=== PATIENT | female | born 1935 | race Caucasian/White ===

== ENCOUNTER 2018-04-03 05:54 | Observation (INO) | payer MEDICARE, BC ==
[2018-04-03] MEDS ORDERED: Sodium Chloride 0.9% 10 ML Syringe FLUSH PRN (06:04)
--- NOTE | 2018-04-03 06:20 | EDM.PDOC ---
<Ramon Chandra - Last Filed: 04/03/18 06:25> ED HPI GENERAL MEDICAL PROBLEM - General Chief Complaint: General Stated Complaint: Fall; Leg Weakness Time Seen by Provider: 04/03/18 05:57 Source of Information: Reports: Patient, EMS Notes Reviewed, RN, RN Notes Reviewed History Limitations: Reports: No Limitations - History of Present Illness INITIAL COMMENTS - FREE TEXT/NARRATIVE: Patient is brought to the ED at [facility] via EMS due to patient fall in the bathroom. According to EMS, the patient initially fell yesterday afternoon in the bathroom. Apparently, the patient laid in the bathroom for about any hour before her was able to help her up. The was apparently watching TV before he knew she was on the floor in the bathroom. Patient states she was again up using the bathroom early this AM when she fell again in the bathroom. She states both her legs hurt, but more behind the right knee. Patient denies any head injury or trauma. No LOC. Patient states she remembers the entire incident. Her only complaint is pain behind the right knee. Patient appears to be somewhat of a poor historian. Most of the interview is obtained from EMR crew. Onset: Today Onset Date: 04/03/18 Location: Reports: Lower Extremity, Right Associated Symptoms: Reports: Nausea/Vomiting Treatments CELLOPHANE TESTER: Reports: Other (see below) (None) - Related Data Allergies Allergy/AdvReac Type Severity Reaction Status Date / Time No Known Allergies Allergy Verified 04/03/18 06:44 Home Meds: Home Meds Aspirin [Lo-Dose Aspirin EC] 81 mg PO DAILY 02/17/17 [History] Gabapentin [Neurontin] 300 mg PO TID 02/17/17 [History] Insulin Aspart [Novolog Flexpen] 24 units SQ TIDMEALS 02/17/17 [History] Multivitamin [Multivitamins] 1 tab PO DAILY 02/17/17 [History] Simvastatin [Zocor] 40 mg PO BEDTIME 02/17/17 [History] metFORMIN [Glucophage XR] 500 mg PO BIDMEALS 02/17/17 [History] Insulin Degludec (Tresiba) 33 units SQ QPM 02/18/17 [History] Famotidine 20 mg PO BID 04/03/18 [History] Furosemide 20 mg DAILY 04/03/18 [History] Lisinopril 20 mg DAILY 04/03/18 [History] Past Medical History HEENT History: Reports: Otitis Media, Sinusitis Cardiovascular History: Reports: High Cholesterol, Hypertension Musculoskeletal History: Reports: Back Pain, Chronic, Osteoarthritis, Other ( See Below) Endocrine/Metabolic History: Reports: Diabetes, Type II Dermatologic History: Reports: Venous Stasis Dermatitis - Past Surgical History GI Surgical History: Reports: Appendectomy, Cholecystectomy Female Surgical History: Reports: Hysterectomy Social & Family History - Caffeine Use Caffeine Use: Reports: Coffee Course - Vital Signs Last Recorded V/S: Last Vital Signs Temp 37.4 C 04/03/18 08:48 Pulse 91 04/03/18 08:48 Resp 16 04/03/18 08:48 BP 148/72 H 04/03/18 08:48 Pulse Ox 94 L 04/03/18 08:48 - Orders/Labs/Meds Orders: Active Orders 24 hr Category Date Time Status Insert Urinary Catheter [OM.PC] Q24H Care 04/03/18 08:00 Ordered Urinary Catheter Assessment [RC] ASDIRECTED Care 04/03/18 07:53 Active Sodium Chloride 0.9% [Normal Saline] 1,000 ml Med 04/03/18 07:09 Active IV .BOLUS Sodium Chloride 0.9% [Saline Flush] Med 04/03/18 06:04 Active 10 ml FLUSH ASDIRECTED PRN Peripheral IV Insertion Adult [OM.PC] Routine Oth 04/03/18 06:04 Ordered Medication Orders Enoxaparin Sodium (Lovenox) 40 mg SUBCUT DAILY PRICE Sodium Chloride (Normal Saline) 1,000 mls @ 125 mls/hr IV .BOLUS ONE Stop: 04/03/18 15:08 Last Admin: 04/03/18 07:15 Dose: 125 mls/hr Sodium Chloride (Normal Saline) 1,000 mls @ 125 mls/hr IV ASDIRECTED PRICE Sodium Chloride (Saline Flush) 10 ml FLUSH ASDIRECTED PRN PRN Reason: Keep Vein Open Labs: Laboratory Tests 04/03/18 04/03/18 04/03/18 Range/Units 06:16 06:16 06:16 WBC 5.7 (4.0-10.0) x10^3/uL RBC 4.12 (4.00-5.50) x10^6/uL Hgb 12.4 D (12.0-16.0) g/dL Hct 38.1 (33.0-47.0) % MCV 92.5 (78.0-93.0) fL MCH 30.1 (26.0-32.0) pg MCHC 32.5 (32.0-36.0) g/dL RDW Coeff of Gopal 14.9 (10.0-15.0) % Plt Count 184 (130-400) x10^3/uL Neut % (Auto) 69.0 (50.0-80.0) % Lymph % (Auto) 16.7 L (25.0-50.0) % Harris % (Auto) 13.7 H (2.0-11.0) % Eos % (Auto) 0.4 (0.0-4.0) % Baso % (Auto) 0.2 (0.2-1.2) % PT 10.4 (9.6-11.4) SEC INR 1.0 L (2.0-3.5) D-Dimer, Quantitative 4.06 H (<=0.58) mg/LFEU Sodium 138 (136-145) mmol/L Potassium 4.0 (3.5-5.1) mmol/L Chloride 100 (98-107) mmol/L Carbon Dioxide 27 (21-32) mmol/L Anion Gap 15.0 (10-20) mmol/L BUN 14 (7-18) mg/dL Creatinine 0.9 (0.55-1.02) mg/dL Est Cr Clr Drug Dosing TNP Estimated GFR (MDRD) > 60 Glucose 142 H (74-106) mg/dL Calcium 9.3 (8.5-10.1) mg/dL Corrected Calcium 9.94 (8.5-10.1) mg/dL Total Bilirubin 0.5 (0.2-1.0) mg/dL AST 43 H (15-37) U/L ALT 33 (14-59) U/L Alkaline Phosphatase 64 (46-116) U/L Creatine Kinase (26-192) U/L Troponin I < 0.017 (<=0.056) ng/mL Total Protein 7.5 (6.4-8.2) g/dL Albumin 3.2 L (3.4-5.0) g/dL Globulin 4.3 Albumin/Globulin Ratio 0.74 Urine Color (YELLOW) Urine Appearance (CLEAR) Urine pH (5.0-8.0) Ur Specific Arnold Urine Protein (NEGATIVE) mg/dL Urine Glucose (UA) (NEGATIVE) mg/dL Urine Ketones (NEGATIVE) mg/dL Urine Occult Blood (NEGATIVE) Urine Nitrite (NEGATIVE) Urine Bilirubin (NEGATIVE) Urine Urobilinogen (0.2) EU/dL Ur Leukocyte Esterase (NEGATIVE) Urine RBC (NOT SEEN) /HPF Urine WBC (NOT SEEN) /HPF Ur Squamous Epith Cells (NEGATIVE) /HPF Urine Bacteria (NEGATIVE) /HPF Urine Mucus (NEGATIVE) /LPF 04/03/18 Range/Units 07:30 WBC (4.0-10.0) x10^3/uL RBC (4.00-5.50) x10^6/uL Hgb (12.0-16.0) g/dL Hct (33.0-47.0) % MCV (78.0-93.0) fL MCH (26.0-32.0) pg MCHC (32.0-36.0) g/dL RDW Coeff of Gopal (10.0-15.0) % Plt Count (130-400) x10^3/uL Neut % (Auto) (50.0-80.0) % Lymph % (Auto) (25.0-50.0) % Harris % (Auto) (2.0-11.0) % Eos % (Auto) (0.0-4.0) % Baso % (Auto) (0.2-1.2) % PT (9.6-11.4) SEC INR (2.0-3.5) D-Dimer, Quantitative (<=0.58) mg/LFEU Sodium (136-145) mmol/L Potassium (3.5-5.1) mmol/L Chloride (98-107) mmol/L Carbon Dioxide (21-32) mmol/L Anion Gap (10-20) mmol/L BUN (7-18) mg/dL Creatinine (0.55-1.02) mg/dL Est Cr Clr Drug Dosing Estimated GFR (MDRD) Glucose (74-106) mg/dL Calcium (8.5-10.1) mg/dL Corrected Calcium (8.5-10.1) mg/dL Total Bilirubin (0.2-1.0) mg/dL AST (15-37) U/L ALT (14-59) U/L Alkaline Phosphatase (46-116) U/L Creatine Kinase (26-192) U/L Troponin I (<=0.056) ng/mL Total Protein (6.4-8.2) g/dL Albumin (3.4-5.0) g/dL Globulin Albumin/Globulin Ratio Urine Color Yellow (YELLOW) Urine Appearance Clear (CLEAR) Urine pH 6.0 (5.0-8.0) Ur Specific Arnold 1.020 Urine Protein Negative (NEGATIVE) mg/dL Urine Glucose (UA) Negative (NEGATIVE) mg/dL Urine Ketones 15 H (NEGATIVE) mg/dL Urine Occult Blood Negative (NEGATIVE) Urine Nitrite Negative (NEGATIVE) Urine Bilirubin Negative (NEGATIVE) Urine Urobilinogen 0.2 (0.2) EU/dL Ur Leukocyte Esterase Negative (NEGATIVE) Urine RBC 0-5 (NOT SEEN) /HPF Urine WBC 0-5 (NOT SEEN) /HPF Ur Squamous Epith Cells Few H (NEGATIVE) /HPF Urine Bacteria Not seen (NEGATIVE) /HPF Urine Mucus Not seen (NEGATIVE) /LPF Meds: Medications Generic Name Dose Route Start Last Admin Trade Name Freq PRN Reason Stop Dose Admin Enoxaparin Sodium 40 mg 04/03/18 10:15 Lovenox SUBCUT DAILY PRICE Sodium Chloride 1,000 mls @ 125 mls/hr 04/03/18 07:09 04/03/18 07:15 Normal Saline IV 04/03/18 15:08 125 mls/hr .BOLUS ONE Administration Sodium Chloride 1,000 mls @ 125 mls/hr 04/03/18 10:00 Normal Saline IV ASDIRECTED PRICE Sodium Chloride 10 ml 04/03/18 06:04 Saline Flush FLUSH ASDIRECTED PRN Keep Vein Open Discontinued Medications Generic Name Dose Route Start Last Admin Trade Name Freq PRN Reason Stop Dose Admin Ondansetron HCl 4 mg 04/03/18 06:29 04/03/18 06:36 Zofran IVPUSH 04/03/18 06:30 4 mg ONETIME ONE Administration Departure - Departure Disposition: Refer to Observation Clinical Impression: Rhabdomyolysis - Discharge Information - Problem List Review Problem List Initiated/Reviewed/Updated: Yes - My Orders Last 24 Hours: My Active Orders 04/03/18 07:09 Sodium Chloride 0.9% [Normal Saline] 1,000 ml IV .BOLUS 04/03/18 07:53 Urinary Catheter Assessment [RC] ASDIRECTED 04/03/18 08:00 Insert Urinary Catheter [OM.PC] Q24H - Assessment/Plan Last 24 Hours: My Active Orders 04/03/18 07:09 Sodium Chloride 0.9% [Normal Saline] 1,000 ml IV .BOLUS 04/03/18 07:53 Urinary Catheter Assessment [RC] ASDIRECTED 04/03/18 08:00 Insert Urinary Catheter [OM.PC] Q24H <Sudarshan Lyn W - Last Filed: 04/03/18 10:20> ED ROS GENERAL - Review of Systems Review Of Systems: ROS reveals no pertinent complaints other than HPI. ED EXAM, GENERAL - Physical Exam Exam: See Below General Appearance: Alert, WD/WN, No Apparent Distress Nose: Normal Inspection, Normal Mucosa, No Blood Throat/Mouth: Normal Inspection, Normal Lips, Normal Teeth, Normal Gums, Normal Oropharynx, Normal Voice, No Airway Compromise Head: Atraumatic, Normocephalic Neck: Normal Inspection, Supple, Non-Tender, Full Range of Motion Respiratory/Chest: No Respiratory Distress, Lungs Clear, Normal Breath Sounds, No Accessory Muscle Use, Chest Non-Tender Cardiovascular: Normal Peripheral Pulses, Regular Rate, Rhythm, No Edema, No Gallop, No JVD, No Murmur, No Rub Peripheral Pulses: 3+: Radial (L), Radial (R) GI/Abdominal: Normal Bowel Sounds, Soft, Non-Tender, No Organomegaly, No Distention, No Abnormal Bruit, No Mass (Female) Exam: Deferred Rectal (Female) Exam: Deferred Back Exam: Normal Inspection, Full Range of Motion, NT Extremities: Normal Inspection, No Pedal Edema, Normal Capillary Refill, Joint Swelling, Leg Pain, Limited Range of Motion Neurological: Alert, Oriented, CN II-XII Intact, Normal Cognition, No Motor/ Sensory Deficits, Other (weakness, particularly in lower extremities) Psychiatric: Normal Affect, Normal Mood Course - Radiology Interpretation Free Text/Narrative:: chest x-ray is negative. Radiographs of both knees are negative. Duplex US of both lower extremities is pending. Departure - Departure Time of Disposition: 08:30 - Assessment/Plan Plan: Pt. will be admitted observation. She is a code 1. Continue IV fluids at 125ml hour to clear myoglobin. Will have PT and OT consult on the patient today. She is scheduled for a lower extremity ultrasound.
[2018-04-03] MEDS ORDERED: Ondansetron 4 MG/2 ML SDV IVPUSH ONE (06:29)
[2018-04-03 06:51] LABS: CHLORIDE,CL 100 mmol/L (98-107); SODIUM,NA 138 mmol/L (136-145)
[2018-04-03] MEDS ORDERED: Sodium Chloride 0.9% 1,000 ML IV ONE (07:09)
--- NOTE | 2018-04-03 08:02 | CR ---
[id number] RAD/RAD Knee Right 3V EXAM: RIGHT KNEE 3 VIEWS INDICATION: Fall with pain. COMPARISON: None. DISCUSSION: Osteopenia. Soft tissue swelling along the lateral aspect of the knee. Moderate tricompartmental osteoarthritis. Chondrocalcinosis. No acute fracture, dislocation or other osseous abnormality is identified. Soft tissue calcifications in the anterior medial thigh and along the anterior aspect of the knee. Arterial calcifications. IMPRESSION: 1. Soft tissue swelling. No definite fracture. Nguyễn Vicente MD 04/03/18 0801 Thank you for allowing us to participate in the care of your patient.
--- NOTE | 2018-04-03 08:03 | CR ---
[id number] RAD/RAD Knee Left 3V EXAM: LEFT KNEE 3 VIEWS INDICATION: Knee pain secondary to a fall. COMPARISON: None. DISCUSSION: Mild diffuse soft tissue swelling. Mild medial and patellofemoral compartment osteoarthritis. Soft tissue calcifications are seen in the anterior aspect of the proximal leg. Arterial calcifications. No acute fracture, joint effusion or dislocation. IMPRESSION: 1. Soft tissue swelling. No acute fracture. Nguyễn Vicente MD 04/03/18 0802 Thank you for allowing us to participate in the care of your patient.
--- NOTE | 2018-04-03 08:30 | CR ---
[id number] RAD/RAD Chest PA or AP 1V EXAM: FRONTAL CHEST INDICATION: Fall and weakness. COMPARISON: February 17, 2017. DISCUSSION: Hypoinflation somewhat limits this assessment. Mild bibasilar atelectasis with no definite infiltrates. Borderline heart size without evidence of congestive heart failure. Chronic right fourth rib fracture. IMPRESSION: 1. Low lung volumes. Nguyễn Vicente MD 04/03/18 0829 Thank you for allowing us to participate in the care of your patient.
[2018-04-03] MEDS ORDERED: Sodium Chloride 0.9% 1,000 ML IV SCH (10:00)
[2018-04-03] MEDS: Enoxaparin 40 MG/0.4 ML Syringe SUBCUT SCH (11:22)
--- NOTE | 2018-04-03 12:00 | US ---
[id number] US/US Venous Doppler LE Bilateral EXAM: BILATERAL LOWER EXTREMITY DUPLEX ULTRASOUND INDICATION: BILATERAL LOWER EXTREMITY PAIN AND POSITIVE D-DIMER. COMPARISON: None. DISCUSSION: Partial flow seen in the left distal posterior tibial vein likely representing nonocclusive thrombus. The remaining deep venous structures are compressible bilaterally. No valvular incompetence or pulsatility seen. Spontaneity, phasicity and response to augmentation were noted by the technologist. IMPRESSION: 1. Suspect nonocclusive DVT within the left posterior tibial vein. Findings discussed with ordering provider at time of dictation. Rylan Raphael DO 04/03/18 1158 Thank you for allowing us to participate in the care of your patient.
[2018-04-03] MEDS ORDERED: Enoxaparin 60 MG/0.6 ML Syringe SUBCUT ONE (13:30)
[2018-04-03] MEDS: Gabapentin 300 MG Cap PO SCH ×2 (13:45→20:20)
[2018-04-03] MEDS: Lisinopril 20 MG Tab PO SCH (14:35)
[2018-04-03] MEDS: Aspirin 81 MG Tab.EC PO SCH (14:35)
[2018-04-03] MEDS: Furosemide 20 MG Tab PO SCH (14:35)
[2018-04-03] MEDS: NOVOLOG SQ SCH ×2 (15:23→18:04)
[2018-04-03] MEDS: metFORMIN 500 MG Tab PO SCH (18:03)
[2018-04-03] MEDS: Enoxaparin 100 MG/1 ML Syringe SUBCUT SCH (20:19)
[2018-04-03] MEDS: Simvastatin 40 MG Tab PO SCH (20:20)
[2018-04-03] MEDS: Warfarin 5 MG Tab PO SCH (20:20)
[2018-04-03] MEDS: Famotidine 20 MG Tab PO SCH (20:20)
[2018-04-04] MEDS: metFORMIN 500 MG Tab PO SCH ×2 (08:40→17:57)
[2018-04-04] MEDS: Furosemide 20 MG Tab PO SCH (08:40)
[2018-04-04] MEDS: Multivitamins with Iron/Calcium/Folic Acid/Minerals Tab PO SCH (08:40)
[2018-04-04] MEDS: Aspirin 81 MG Tab.EC PO SCH (08:40)
[2018-04-04] MEDS: Gabapentin 300 MG Cap PO SCH ×3 (08:40→20:44)
[2018-04-04] MEDS: Lisinopril 20 MG Tab PO SCH (08:40)
[2018-04-04] MEDS: Famotidine 20 MG Tab PO SCH ×2 (08:40→20:44)
[2018-04-04] MEDS: Enoxaparin 40 MG/0.4 ML Syringe SUBCUT SCH (08:40)
[2018-04-04] MEDS: Enoxaparin 100 MG/1 ML Syringe SUBCUT SCH ×2 (08:41→20:45)
[2018-04-04] MEDS: NOVOLOG SQ SCH ×3 (08:44→17:58)
[2018-04-04] MEDS: TRESIBA SQ SCH (08:47)
[2018-04-04] MEDS ORDERED: Warfarin 2.5 MG Tab PO ONE (20:00)
[2018-04-04] MEDS: Warfarin 5 MG Tab PO SCH (20:44)
[2018-04-04] MEDS: Simvastatin 40 MG Tab PO SCH (20:44)
[2018-04-05] MEDS: Enoxaparin 40 MG/0.4 ML Syringe SUBCUT SCH (07:40)
[2018-04-05] MEDS: Enoxaparin 100 MG/1 ML Syringe SUBCUT SCH (07:40)
[2018-04-05] MEDS: Famotidine 20 MG Tab PO SCH (07:40)
[2018-04-05] MEDS: metFORMIN 500 MG Tab PO SCH (07:40)
[2018-04-05] MEDS: Multivitamins with Iron/Calcium/Folic Acid/Minerals Tab PO SCH (07:40)
[2018-04-05] MEDS: Furosemide 20 MG Tab PO SCH (07:40)
[2018-04-05] MEDS: Gabapentin 300 MG Cap PO SCH (07:40)
[2018-04-05] MEDS: Aspirin 81 MG Tab.EC PO SCH (07:40)
[2018-04-05] MEDS: Lisinopril 20 MG Tab PO SCH (07:40)
[2018-04-05] MEDS: NOVOLOG SQ SCH (07:42)
--- NOTE | 2018-04-05 09:40 | PCM.DCSUM1 ---
Discharge Summary - Hospital Course Free Text/Narrative:: Pt. is doing well this AM. She did very well with PT this AM. She was seen again by them today, and it is felt that she will be able to be discharged based on her current functional status. She denies any chest pain or shortness of breath. She continues to be subtheraputic in terms of her INR. None of her medications would have decreased the efficacy of the coumadin, so likely this inhibition is due to her diet. She will be counseled on this and kept at 7.5 mg of coumadin daily with lovenox bridge. Home PT and home health are being ordered. She will require some coumadin teaching. She continues to have some difficulty ascending stairs; we will have PT work with her on strengthening and ambulation. We have set up follow-up appointments with her PCP. She will have her INR checked tomorrow and adjusted as necessary. Diagnosis: Stroke: No - Discharge Data Discharge Date: 04/05/18 Discharge Disposition: Home, Self-Care 01 Condition: Good - Discharge Diagnosis/Problem(s) (1) DVT (deep venous thrombosis) SNOMED Code(s): 509826847 ICD Code: I82.409 - ACUTE EMBOLISM AND THOMBOS UNSP DEEP VN UNSP LOWER EXTREMITY Status: Acute Current Visit: Yes Qualifiers: DVT location: lower extremity Affected thrombotic vein of extremity: tibial Chronicity: acute Laterality: left Qualified Code(s): I82.442 - Acute embolism and thrombosis of left tibial vein (2) Rhabdomyolysis SNOMED Code(s): 672344913 ICD Code: M62.82 - RHABDOMYOLYSIS Status: Acute Current Visit: Yes Qualifiers: Rhabdomyolysis type: non-traumatic Qualified Code(s): M62.82 - Rhabdomyolysis - Patient Summary/Data Consults: Consultations 04/03/18 08:53 Consult to Physical Therapy [PT Evaluation and Treatment] [CONS] Routine 04/03/18 08:54 OT Evaluation and Treatment [CONS] Routine 04/05/18 09:14 Consult to Home Health [CONS] Routine - Patient Instructions Diet, Other: coumadin Activity: As Tolerated - Discharge Plan Prescriptions/Med Rec: Enoxaparin [Lovenox] 100 mg SUBCUT BID #14 syringe Warfarin Sodium [Jantoven] 7.5 mg PO DAILY #14 tablet Home Medications: Home Meds Aspirin [Lo-Dose Aspirin EC] 81 mg PO DAILY 02/17/17 [History] Gabapentin [Neurontin] 300 mg PO TID 02/17/17 [History] Insulin Aspart [Novolog Flexpen] 24 units SQ TIDMEALS 02/17/17 [History] Multivitamin [Multivitamins] 1 tab PO DAILY 02/17/17 [History] Simvastatin [Zocor] 40 mg PO BEDTIME 02/17/17 [History] metFORMIN [Glucophage XR] 500 mg PO BIDMEALS 02/17/17 [History] Insulin Degludec (Tresiba) 33 units SQ DAILY 02/18/17 [History] Famotidine 20 mg PO BID 04/03/18 [History] Furosemide 20 mg DAILY 04/03/18 [History] Lisinopril 20 mg DAILY 04/03/18 [History] Sulfamethoxazole/Trimethoprim [Bactrim 400-80 MG] 1 tab PO DAILY 04/03/18 [ History] Enoxaparin [Lovenox] 100 mg SUBCUT BID #14 syringe 04/05/18 [Rx] Warfarin Sodium [Jantoven] 7.5 mg PO DAILY #14 tablet 04/05/18 [Rx] Patient Handouts: Warfarin tablets, What You Need to Know About Warfarin, Prothrombin Time, International Normalized Ratio Test, Vitamin K Foods and Warfarin Forms: ED Department Discharge Referrals: Kirstie Buck, PEN TESTER [Primary Care Provider] - (You have an appt. with the [place] Nurse on April 06, 2018 at 10:00 AM at [facility].) - Discharge Summary/Plan Comment DC Time >30 min.: Yes Discharge Summary/Plan Comment: As above. Pt. was given a week supply of lovenox and a 2 week supply of 7.5mg coumadin, in the likely event that her medication will need adjustment. Continue with other medications. She was encouraged to be up and active around the house. She should return to ER or call 911 if she has any chest pain, shortness of breath, headache, difficulty with speech or ambulation, or numbness /tingling in extremities/face. She should increase her intake of fluids, given in history of recent rhabdomyolysis. - General Info Date of Service: 04/05/18 Admission Dx/Problem (Free Text: DVT Functional Status: Reports: Pain Controlled, Tolerating Diet, Ambulating, Urinating - Review of Systems General: Reports: No Symptoms HEENT: Reports: No Symptoms Pulmonary: Reports: No Symptoms Cardiovascular: Reports: No Symptoms Gastrointestinal: Reports: No Symptoms Genitourinary: Reports: No Symptoms Musculoskeletal: Reports: No Symptoms Skin: Reports: No Symptoms Neurological: Reports: No Symptoms Psychiatric: Reports: No Symptoms - Patient Data Vitals - Most Recent: Last Vital Signs Temp 37.2 C 04/05/18 06:00 Pulse 85 04/05/18 06:00 Resp 18 04/05/18 06:00 BP 120/52 L 04/05/18 07:40 Pulse Ox 94 L 04/05/18 06:00 Weight - Most Recent: 101.151 kg I&O - Last 24 hours: Intake & Output 04/04/18 04/05/18 04/05/18 22:59 06:59 14:59 Intake Total 240 240 240 Output Total 450 Balance 240 -210 240 Lab Results - Last 24 hrs: Laboratory Results - last 24 hr 04/04/18 04/04/18 04/05/18 Range/Units 11:22 16:50 07:00 PT 10.9 (9.6-11.4) SEC INR 1.0 L (2.0-3.5) POC Glucose 185 H 121 H (74-106) mg/dL Med Orders - Current: Current Medications Aspirin (Halfprin) 81 mg PO DAILY [facility] Last Admin: 04/05/18 07:40 Dose: 81 mg Enoxaparin Sodium (Lovenox) 40 mg SUBCUT DAILY [facility] Last Admin: 04/05/18 07:40 Dose: 40 mg Enoxaparin Sodium (Lovenox) 100 mg SUBCUT BID [facility] Last Admin: 04/05/18 07:40 Dose: 100 mg Famotidine (Pepcid) 20 mg PO BID [facility] Last Admin: 04/05/18 07:40 Dose: 20 mg Furosemide (Lasix) 20 mg PO DAILY [facility] Last Admin: 04/05/18 07:40 Dose: 20 mg Gabapentin (Neurontin) 300 mg PO TID [facility] Last Admin: 04/05/18 07:40 Dose: 300 mg Lisinopril (Prinivil) 20 mg PO DAILY [facility] Last Admin: 04/05/18 07:40 Dose: 20 mg Metformin HCl (Glucophage) 500 mg PO BIDMEALS [facility] Last Admin: 04/05/18 07:40 Dose: 500 mg Multivitamins/Minerals (Thera M Plus) 1 tab PO DAILY [facility] Last Admin: 04/05/18 07:40 Dose: 1 tab Novolog Flexpen ( Insulin Aspart 100 Units/Ml) 24 units SQ TIDMEALS [facility] Last Admin: 04/05/18 07:42 Dose: 24 units Tresiba (Insulin Degludec 100 Units/Ml) 33 units SQ DAILY [facility] Last Admin: 04/04/18 08:47 Dose: 33 units Simvastatin (Zocor) 40 mg PO BEDTIME [facility] Last Admin: 04/04/18 20:44 Dose: 40 mg Sodium Chloride (Saline Flush) 10 ml FLUSH ASDIRECTED PRN PRN Reason: Keep Vein Open Warfarin Sodium (Coumadin) 5 mg PO BEDTIME [facility] Last Admin: 04/04/18 20:44 Dose: 5 mg Discontinued Medications Enoxaparin Sodium (Lovenox) 60 mg SUBCUT ONETIME ONE Stop: 04/03/18 13:31 Last Admin: 04/03/18 13:44 Dose: 60 mg Sodium Chloride (Normal Saline) 1,000 mls @ 125 mls/hr IV .BOLUS ONE Stop: 04/03/18 15:08 Last Admin: 04/03/18 07:15 Dose: 125 mls/hr Sodium Chloride (Normal Saline) 1,000 mls @ 125 mls/hr IV ASDIRECTED [facility] Last Admin: 04/03/18 14:35 Dose: 125 mls/hr Ondansetron HCl (Zofran) 4 mg IVPUSH ONETIME ONE Stop: 04/03/18 06:30 Last Admin: 04/03/18 06:36 Dose: 4 mg Warfarin Sodium (Coumadin) 2.5 mg PO ONETIME ONE Stop: 04/04/18 20:01 Last Admin: 04/04/18 20:45 Dose: 2.5 mg - Exam General: Reports: Alert, Oriented Neck: Reports: Supple Lungs: Reports: Clear to Auscultation, Normal Respiratory Effort Cardiovascular: Reports: Regular Rate, Regular Rhythm GI/Abdominal Exam: Normal Bowel Sounds, Soft, Non-Tender, No Organomegaly, No Distention, No Abnormal Bruit, No Mass, Pelvis Stable (Female) Exam: Deferred Rectal (Female) Exam: Deferred Back Exam: Reports: Normal Inspection, Full Range of Motion Extremities: Normal Inspection, Normal Range of Motion, Non-Tender, No Pedal Edema, Normal Capillary Refill Skin: Reports: Warm, Dry, Intact Neurological: Reports: No New Focal Deficit Psy/Mental Status: Reports: Alert, Normal Affect, Normal Mood
[2018-04-05] MEDS: TRESIBA SQ SCH (09:50)
--- NOTE | 2018-04-07 08:06 | PCM.PN ---
- General Info Date of Service: 04/04/18 Admission Dx/Problem (Free Text): DVT Functional Status: Reports: Pain Controlled - Review of Systems General: Reports: No Symptoms HEENT: Reports: No Symptoms Pulmonary: Reports: No Symptoms Cardiovascular: Reports: No Symptoms Gastrointestinal: Reports: No Symptoms Genitourinary: Reports: No Symptoms Musculoskeletal: Reports: Leg Pain (bilateral leg weakness ) Skin: Reports: No Symptoms Neurological: Reports: No Symptoms Psychiatric: Reports: No Symptoms - Patient Data Vitals - Most Recent: Last Vital Signs Temp 37.2 C 04/05/18 06:00 Pulse 85 04/05/18 06:00 Resp 18 04/05/18 06:00 BP 120/52 L 04/05/18 07:40 Pulse Ox 94 L 04/05/18 06:00 Weight - Most Recent: 101.151 kg Med Orders - Current: Current Medications Discontinued Medications Aspirin (Halfprin) 81 mg PO DAILY [facility] Last Admin: 04/05/18 07:40 Dose: 81 mg Enoxaparin Sodium (Lovenox) 40 mg SUBCUT DAILY [facility] Last Admin: 04/05/18 07:40 Dose: 40 mg Enoxaparin Sodium (Lovenox) 60 mg SUBCUT ONETIME ONE Stop: 04/03/18 13:31 Last Admin: 04/03/18 13:44 Dose: 60 mg Enoxaparin Sodium (Lovenox) 100 mg SUBCUT BID [facility] Last Admin: 04/05/18 07:40 Dose: 100 mg Famotidine (Pepcid) 20 mg PO BID [facility] Last Admin: 04/05/18 07:40 Dose: 20 mg Furosemide (Lasix) 20 mg PO DAILY [facility] Last Admin: 04/05/18 07:40 Dose: 20 mg Gabapentin (Neurontin) 300 mg PO TID [facility] Last Admin: 04/05/18 07:40 Dose: 300 mg Sodium Chloride (Normal Saline) 1,000 mls @ 125 mls/hr IV .BOLUS ONE Stop: 04/03/18 15:08 Last Admin: 04/03/18 07:15 Dose: 125 mls/hr Sodium Chloride (Normal Saline) 1,000 mls @ 125 mls/hr IV ASDIRECTED [facility] Last Admin: 04/03/18 14:35 Dose: 125 mls/hr Lisinopril (Prinivil) 20 mg PO DAILY [facility] Last Admin: 04/05/18 07:40 Dose: 20 mg Metformin HCl (Glucophage) 500 mg PO BIDMEALS [facility] Last Admin: 04/05/18 07:40 Dose: 500 mg Multivitamins/Minerals (Thera M Plus) 1 tab PO DAILY [facility] Last Admin: 04/05/18 07:40 Dose: 1 tab Novolog Flexpen ( Insulin Aspart 100 Units/Ml) 24 units SQ TIDMEALS [facility] Last Admin: 04/05/18 07:42 Dose: 24 units Tresiba (Insulin Degludec 100 Units/Ml) 33 units SQ DAILY [facility] Last Admin: 04/05/18 09:50 Dose: 33 units Ondansetron HCl (Zofran) 4 mg IVPUSH ONETIME ONE Stop: 04/03/18 06:30 Last Admin: 04/03/18 06:36 Dose: 4 mg Simvastatin (Zocor) 40 mg PO BEDTIME [facility] Last Admin: 04/04/18 20:44 Dose: 40 mg Sodium Chloride (Saline Flush) 10 ml FLUSH ASDIRECTED PRN PRN Reason: Keep Vein Open Warfarin Sodium (Coumadin) 5 mg PO BEDTIME [facility] Last Admin: 04/04/18 20:44 Dose: 5 mg Warfarin Sodium (Coumadin) 2.5 mg PO ONETIME ONE Stop: 04/04/18 20:01 Last Admin: 04/04/18 20:45 Dose: 2.5 mg - Exam General: Alert, Oriented, Cooperative HEENT: Pupils Equal, Pupils Reactive, EOMI Neck: Supple Lungs: Clear to Auscultation, Normal Respiratory Effort Cardiovascular: Regular Rate, Regular Rhythm GI/Abdominal Exam: Normal Bowel Sounds, Soft, Non-Tender, No Organomegaly, No Distention, No Abnormal Bruit, No Mass, Pelvis Stable Back Exam: Normal Inspection, Full Range of Motion Extremities: Normal Range of Motion, Normal Capillary Refill, Pedal Edema (1-2+) , Leg Pain (right leg > left leg), Other (confirmed DVT to left leg on ultrasound) Skin: Warm, Dry, Intact Neurological: No New Focal Deficit Psy/Mental Status: Alert, Normal Affect, Normal Mood - Problem List & Annotations (1) DVT (deep venous thrombosis) SNOMED Code(s): 560179917 Code(s): I82.409 - ACUTE EMBOLISM AND THOMBOS UNSP DEEP VN UNSP LOWER EXTREMITY Status: Acute Priority: Medium Qualifiers: DVT location: lower extremity Affected thrombotic vein of extremity: tibial Chronicity: acute Laterality: left Qualified Code(s): I82.442 - Acute embolism and thrombosis of left tibial vein (2) Rhabdomyolysis SNOMED Code(s): 457787779 Code(s): M62.82 - RHABDOMYOLYSIS Status: Acute Priority: Medium Qualifiers: Rhabdomyolysis type: non-traumatic Qualified Code(s): M62.82 - Rhabdomyolysis - Problem List Review Problem List Initiated/Reviewed/Updated: Yes - Plan Plan:: Plan 1. Rhabdomyolisis - resolved, continue with PT, OT, ambulation, fluids as needed 2. DVT left tibial vein - continue to bridge lovenox with warfarin. INR 1.1 today, will add 2.5 mg today to her 5 mg for total of 7.5 mg 3. PT/OT reevaluation, stay another night with discharge tomorrow or change to acute if more time is needed for her recovery
== END 2018-04-05 11:07 | disposition home or self-care (01) ==
LOC: VM.ED 05:54 → SUPCPDRO 05:54 → VM.MS 07:56
PROVIDERS: ADMIT Physician Assistant; ATTEND Physician Assistant
DX: I82.442 Acute embolism and thrombosis of left tibial vein (principal); M62.82 Rhabdomyolysis; I10 Essential (primary) hypertension; E11.9 Type 2 diabetes mellitus without complications; Z79.82 Long term (current) use of aspirin; Z79.4 Long term (current) use of insulin; Z79.899 Other long term (current) drug therapy
CPT/HCPCS: 36415; 71045; 73562; 80053; 81001; 82550; 82962; 84484; 85025; 85027; 85379; 85610; 93005; 96361; 96372; 96374; 97110; 97116; 97162; 97165; 99285; A9270; G0365; G0378; J1650; J2405; J7030

== ENCOUNTER 2018-11-08 03:30 | Inpatient (IN) | payer MEDICARE, BC ==
--- NOTE | 2018-11-08 04:17 | EDM.PDOC ---
<Dario Tovar M - Last Filed: 11/08/18 05:08> ED HPI GENERAL MEDICAL PROBLEM - General Chief Complaint: Upper Extremity Injury/Pain Stated Complaint: left shoulder pain Time Seen by Provider: 11/08/18 04:03 Source of Information: Reports: Patient History Limitations: Reports: No Limitations - History of Present Illness INITIAL COMMENTS - FREE TEXT/NARRATIVE: Patient reports falling out of bed this AM and felt/heard her left shoulder snap. She has some numbness down her arm. Is able to move fingers, hand. Does have cast on her left wrist due to a fall while on vacation. Has an ulnar fracture. She denies hitting her head, no LOC, denies chest pain, sob, abdominal pain. Is on bactrim ds for urinary tract infection. Denies blood in urine or stool. Onset: Today, Sudden Location: Reports: Upper Extremity, Left Quality: Reports: Stabbing Severity: Moderate Improves with: Reports: Rest Worsens with: Reports: Movement Associated Symptoms: Reports: No Other Symptoms Left Shoulder Pain Score (Numeric/FACES): 7 - Related Data Allergies Allergy/AdvReac Type Severity Reaction Status Date / Time No Known Allergies Allergy Verified 11/08/18 04:00 Home Meds: Home Meds Aspirin [Lo-Dose Aspirin EC] 81 mg PO DAILY 02/17/17 [History] Gabapentin [Neurontin] 300 mg PO TID 02/17/17 [History] Insulin Aspart [Novolog Flexpen] 24 units SQ TIDMEALS 02/17/17 [History] Multivitamin [Multivitamins] 1 tab PO DAILY 02/17/17 [History] Simvastatin [Zocor] 40 mg PO BEDTIME 02/17/17 [History] metFORMIN [Glucophage XR] 500 mg PO BIDMEALS 02/17/17 [History] Insulin Degludec (Tresiba) 35 units SQ DAILY 02/18/17 [History] Lisinopril 20 mg PO DAILY 04/03/18 [History] Sulfamethoxazole/Trimethoprim [Sulfamethoxazole-Tmp Ds Tablet] 1 each PO BID [History] Past Medical History HEENT History: Reports: Otitis Media, Sinusitis Cardiovascular History: Reports: High Cholesterol, Hypertension Musculoskeletal History: Reports: Back Pain, Chronic, Osteoarthritis, Other ( See Below) Endocrine/Metabolic History: Reports: Diabetes, Type II Dermatologic History: Reports: Venous Stasis Dermatitis - Past Surgical History GI Surgical History: Reports: Appendectomy, Cholecystectomy Female Surgical History: Reports: Hysterectomy Social & Family History - Family History Family Medical History: Noncontributory - Tobacco Use Smoking Status *Q: Never Smoker - Caffeine Use Caffeine Use: Reports: Tea Review of Systems - Review of Systems Review Of Systems: See Below Constitutional: Reports: No Symptoms Eyes: Reports: No Symptoms Ears: Reports: No Symptoms Nose: Reports: No Symptoms Mouth/Throat: Reports: No Symptoms Respiratory: Reports: No Symptoms Cardiovascular: Reports: No Symptoms GI/Abdominal: Reports: No Symptoms Genitourinary: Reports: No Symptoms Musculoskeletal: Reports: Shoulder Pain (left) Skin: Reports: No Symptoms Neurological: Reports: No Symptoms Psychiatric: Reports: No Symptoms ED EXAM, GENERAL - Physical Exam Exam: See Below Exam Limited By: No Limitations General Appearance: Alert, WD/WN, No Apparent Distress Eye Exam: Bilateral Eye: EOMI, Normal Inspection, PERRL Ears: Normal TMs Nose: Normal Inspection, Normal Mucosa, No Blood Throat/Mouth: Normal Inspection, Normal Lips, Normal Teeth, Normal Gums, Normal Oropharynx, Normal Voice, No Airway Compromise Head: Atraumatic, Normocephalic Neck: Normal Inspection, Supple, Non-Tender, Full Range of Motion Respiratory/Chest: No Respiratory Distress, Lungs Clear, Normal Breath Sounds, No Accessory Muscle Use, Chest Non-Tender Cardiovascular: Normal Peripheral Pulses, Regular Rate, Rhythm, No Edema, No Gallop, No JVD, No Murmur, No Rub Peripheral Pulses: 2+: Radial (L), Radial (R), Posterior Tibial (L), Posterior Tibial (R), Dorsalis Pedis (L), Dorsalis Pedis (R) GI/Abdominal: Normal Bowel Sounds, Soft, Non-Tender, No Organomegaly, No Distention, No Abnormal Bruit, No Mass Back Exam: Normal Inspection, Full Range of Motion, NT Extremities: Normal Inspection, Slow Capillary Refill, Arm Pain, Limited Range of Motion (left shoulder) Neurological: Alert, Oriented, CN II-XII Intact, Normal Cognition, Normal Gait, Normal Reflexes, No Motor/Sensory Deficits Psychiatric: Normal Affect, Normal Mood Skin Exam: Warm, Dry, Intact, Normal Color, No Rash Lymphatic: No Adenopathy Course - Vital Signs Last Recorded V/S: Last Vital Signs Temp 35.7 C 11/08/18 03:34 Pulse 69 11/08/18 03:34 Resp 18 11/08/18 03:34 BP 147/60 H 11/08/18 03:34 Pulse Ox 93 L 11/08/18 03:34 - Orders/Labs/Meds Orders: Active Orders 24 hr Category Date Time Status Patient Status [ADT] Routine ADT 11/08/18 05:15 Active Shoulder Comp Lt [CR] Stat Exams 11/08/18 04:04 Taken Sodium Chloride 0.9% [Saline Flush] Med 11/08/18 04:24 Active 10 ml FLUSH ASDIRECTED PRN Saline Lock Insert [OM.PC] Routine Oth 11/08/18 04:24 Ordered Medication Orders Hydrocodone Bitart/Acetaminophen ([place] 325-10 Mg) 1 tab PO ONETIME ONE Stop: 11/08/18 06:03 Sodium Chloride (Saline Flush) 10 ml FLUSH ASDIRECTED PRN PRN Reason: Keep Vein Open Meds: Medications Generic Name Dose Route Start Last Admin Trade Name Freq PRN Reason Stop Dose Admin Hydrocodone Bitart/Acetaminophen 1 tab 11/08/18 06:02 [place] 325-10 Mg PO 11/08/18 06:03 ONETIME ONE Sodium Chloride 10 ml 11/08/18 04:24 Saline Flush FLUSH ASDIRECTED PRN Keep Vein Open Discontinued Medications Generic Name Dose Route Start Last Admin Trade Name Freq PRN Reason Stop Dose Admin Hydromorphone HCl 1 mg 11/08/18 04:24 11/08/18 04:31 Dilaudid IVPUSH 11/08/18 04:25 0.5 mg ONETIME ONE Administration Ondansetron HCl 4 mg 11/08/18 04:24 11/08/18 04:29 Zofran IVPUSH 11/08/18 04:25 4 mg ONETIME ONE Administration Departure - Departure Disposition: Admitted As Inpatient 67 Clinical Impression: UTI (urinary tract infection), Weakness, Fracture, humerus, anatomical neck - Discharge Information ED Communication - ED Communication Date/Time Date: 11/08/18 Time Called: 05:02 - Discussed Case With (1) Discussed Case With (1): Other (Discussed case with Dr. Connolly, orthopaedics at [facility]. Recommended either a sling or cuff and collar and follow up in a week.) - My Orders Last 24 Hours: My Active Orders 11/08/18 05:15 Patient Status [ADT] Routine - Assessment/Plan Last 24 Hours: My Active Orders 11/08/18 05:15 Patient Status [ADT] Routine <Sudarshan Lyn - Last Filed: 11/08/18 06:15> ED HPI GENERAL MEDICAL PROBLEM - History of Present Illness INITIAL COMMENTS - FREE TEXT/NARRATIVE: Pt. denies striking her head in the fall. Denies any neck pain. Pt. was seen in [facility] ER in [place] on 11/05/18 with acute confusion, weakness, and falls. She had an extensive workup, including CT of the brain, labs including CBC, electrolytes, lactic acid, cardiac enzymes and EKG, and was found to have an urinary tract infection. She was subsequently discharged on bactrim DS twice daily. Daughter states that she is still confused and has been very weak. Her gait and balance are affected and likely contributed to her fall this AM. Pt. lives with her elderly in a house and she uses a walker to ambulate. This has been difficult due to her L ulnar styloid fracture. Course - Radiology Interpretation Free Text/Narrative:: L displaced surgical neck fracture of L humerus. Departure - Departure Time of Disposition: 05:48 - Problem List Review Problem List Initiated/Reviewed/Updated: Yes - Assessment/Plan Plan: Pt. continues to be quite weak and confused. This very likely contributed to her fall today. Will be admitting the patient acutely. Labs including CBC, CMP, mag, phos, lactic acid and blood cultures will be obtained on the floor. Will start IV rocephin 2 gm daily for UTI. Family feels she is at least as confused as she was when she was seen in ER on 11/05. I did speak with Dr. Ravi who will be attending and will see the patient this evening. Pt. will be placed in a sling. Dr. Guy at [facility] was consulted and states that this injury can be managed non-operatively with a sling and immobilization of the extremity. Discussed code status with patient. She does not wish for intubation or CPR in event of emergency. Pt. has a history of DVT. She will be started on lovenox for DVT prophylaxis during her stay in ER. PT and OT to follow. She will be started on [place] 10/325mg every 4-6 hours as needed for pain.
[2018-11-08] MEDS ORDERED: Ondansetron 4 MG/2 ML SDV IVPUSH ONE (04:24)
[2018-11-08] MEDS ORDERED: HYDROmorphone 1 MG/ML Syringe IVPUSH ONE (04:24)
[2018-11-08] MEDS ORDERED: Sodium Chloride 0.9% 10 ML Syringe FLUSH PRN (04:24)
[2018-11-08] MEDS ORDERED: Acetaminophen/HYDROcodone 325-10 MG Tab PO ONE (06:02)
[2018-11-08] MEDS ORDERED: Acetaminophen/HYDROcodone 325-10 MG Tab PO STA (06:05)
[2018-11-08 07:32] LABS: CHLORIDE,CL 106 mmol/L (98-107); SODIUM,NA 142 mmol/L (136-145)
[2018-11-08 07:35] LABS: ANION GAP 13.4 mmol/L (10-20)
[2018-11-08] MEDS ORDERED: Insulin Glargine,Human Rec. Analog 100 Units/ML 3 ML Pen SUBCUT SCH ×2 (08:00→10:06)
[2018-11-08] MEDS: metFORMIN 500 MG Tab PO SCH ×2 (08:24→18:16)
[2018-11-08] MEDS: cefTRIAXone 2 GM Vial IVPUSH SCH (08:24)
[2018-11-08] MEDS: Lisinopril 20 MG Tab PO SCH (08:24)
[2018-11-08] MEDS: Multivitamin, Stress Formula with Zinc Tab PO SCH (08:24)
[2018-11-08] MEDS: Gabapentin 300 MG Cap PO SCH ×3 (08:24→20:40)
[2018-11-08] MEDS: Aspirin 81 MG Tab.EC PO SCH (08:24)
--- NOTE | 2018-11-08 08:26 | CR ---
[id number] RAD/RAD Shoulder Left 2V Min Exam: RAD Shoulder Left 2V Min Indication:FALL. Comparison: No prior imaging for comparison. Discussion: Acute comminuted impacted angulated fracture of the proximal left humerus centered at the surgical neck. Distal fragment is displaced medially at least 24 mm. There are at least 4 fragments identified. No other fracture identified. Impression: Acute proximal left humerus fracture, described above. Dennys Ceja MD 11/08/18 0825 Thank you for allowing us to participate in the care of your patient.
--- NOTE | 2018-11-08 08:54 | PCM.PN ---
- General Info Date of Service: 11/08/18 Admission Dx/Problem (Free Text): Left humerus fracture, Left radial fracture, weakness, UTI Subjective Update: 83 year old female admitted earlier this morning after she fell getting out of bed. Pt had previous left radial fracture. Was also being treated for UTI. Confusion has improved since starting UTI treatment but is still present. Fell again last night sustaining left humerus fracture. States pain is "better" - rates it as a 4 Functional Status: Reports: Pain Controlled - Review of Systems General: Reports: Weakness HEENT: Reports: No Symptoms Pulmonary: Reports: No Symptoms Cardiovascular: Reports: No Symptoms Gastrointestinal: Reports: No Symptoms Genitourinary: Reports: Dysuria, Frequency, Incontinence. Denies: Hematuria Musculoskeletal: Reports: Arm Pain, Hand Pain Skin: Reports: No Symptoms Neurological: Reports: Confusion Psychiatric: Reports: Confusion - Patient Data Vitals - Most Recent: Last Vital Signs Temp 36.8 C 11/08/18 06:00 Pulse 84 11/08/18 06:00 Resp 16 11/08/18 06:00 BP 178/66 H 11/08/18 08:24 Pulse Ox 94 L 11/08/18 06:00 Lab Results Last 24 Hours: Laboratory Results - last 24 hr 11/08/18 11/08/18 11/08/18 Range/Units 05:53 06:42 06:42 WBC (4.0-10.0) x10^3/uL RBC (4.00-5.50) x10^6/uL Hgb (12.0-16.0) g/dL Hct (33.0-47.0) % MCV (78.0-93.0) fL MCH (26.0-32.0) pg MCHC (32.0-36.0) g/dL RDW Coeff of Gopal (10.0-15.0) % Plt Count (130-400) x10^3/uL Neut % (Auto) (50.0-80.0) % Lymph % (Auto) (25.0-50.0) % Garden % (Auto) (2.0-11.0) % Eos % (Auto) (0.0-4.0) % Baso % (Auto) (0.2-1.2) % PT 10.2 (10.0-12.8) SEC INR 0.9 L (2.0-3.5) Sodium 142 (136-145) mmol/L Potassium 4.4 (3.5-5.1) mmol/L Chloride 106 (98-107) mmol/L Carbon Dioxide 27 (21-32) mmol/L Anion Gap 13.4 (10-20) mmol/L BUN 22 H (7-18) mg/dL Creatinine 0.9 (0.55-1.02) mg/dL Est Cr Clr Drug Dosing TNP Estimated GFR (MDRD) 60 Glucose 206 H (74-106) mg/dL POC Glucose 172 H (74-106) mg/dL Lactic Acid (0.4-2.0) mmol/L Calcium 9.5 (8.5-10.1) mg/dL Corrected Calcium 10.22 H (8.5-10.1) mg/dL Phosphorus 3.8 (2.6-4.7) mg/dL Magnesium 1.7 L (1.8-2.4) mg/dL Total Bilirubin 0.5 (0.2-1.0) mg/dL AST 51 H (15-37) U/L ALT 57 (14-59) U/L Alkaline Phosphatase 151 H (46-116) U/L C-Reactive Protein 2.1 H (<=0.9) mg/dL Total Protein 7.2 (6.4-8.2) g/dL Albumin 3.1 L (3.4-5.0) g/dL Globulin 4.1 Albumin/Globulin Ratio 0.76 11/08/18 11/08/18 Range/Units 06:52 06:52 WBC 8.2 (4.0-10.0) x10^3/uL RBC 4.57 (4.00-5.50) x10^6/uL Hgb 13.4 (12.0-16.0) g/dL Hct 42.3 (33.0-47.0) % MCV 92.6 (78.0-93.0) fL MCH 29.3 (26.0-32.0) pg MCHC 31.7 L (32.0-36.0) g/dL RDW Coeff of Gopal 15.2 H (10.0-15.0) % Plt Count 206 (130-400) x10^3/uL Neut % (Auto) 79.1 (50.0-80.0) % Lymph % (Auto) 13.8 L (25.0-50.0) % Garden % (Auto) 6.0 (2.0-11.0) % Eos % (Auto) 0.9 (0.0-4.0) % Baso % (Auto) 0.2 (0.2-1.2) % PT (10.0-12.8) SEC INR (2.0-3.5) Sodium (136-145) mmol/L Potassium (3.5-5.1) mmol/L Chloride (98-107) mmol/L Carbon Dioxide (21-32) mmol/L Anion Gap (10-20) mmol/L BUN (7-18) mg/dL Creatinine (0.55-1.02) mg/dL Est Cr Clr Drug Dosing Estimated GFR (MDRD) Glucose (74-106) mg/dL POC Glucose (74-106) mg/dL Lactic Acid 1.7 (0.4-2.0) mmol/L Calcium (8.5-10.1) mg/dL Corrected Calcium (8.5-10.1) mg/dL Phosphorus (2.6-4.7) mg/dL Magnesium (1.8-2.4) mg/dL Total Bilirubin (0.2-1.0) mg/dL AST (15-37) U/L ALT (14-59) U/L Alkaline Phosphatase (46-116) U/L C-Reactive Protein (<=0.9) mg/dL Total Protein (6.4-8.2) g/dL Albumin (3.4-5.0) g/dL Globulin Albumin/Globulin Ratio Quang Results Last 24 Hours: Microbiology 11/08/18 06:52 Anaerobic Blood Culture - Final Blood - Venous - Lab Draw Med Orders - Current: Current Medications Aspirin (Halfprin) 81 mg PO DAILY [facility] Last Admin: 11/08/18 08:24 Dose: 81 mg Ceftriaxone Sodium (Rocephin) 2 gm IVPUSH DAILY [facility] Last Admin: 11/08/18 08:24 Dose: 2 gm Enoxaparin Sodium (Lovenox) 40 mg SUBCUT DAILY [facility] Gabapentin (Neurontin) 300 mg PO TID [facility] Last Admin: 08/21/19 08:24 Dose: 300 mg Insulin Glargine (Lantus Solostar) 35 units SUBCUT DAILY [facility] Insulin Human Lispro (Humalog) 24 unit SUBCUT TIDMEALS [facility] Lisinopril (Prinivil) 20 mg PO DAILY [facility] Last Admin: 11/08/18 08:24 Dose: 20 mg Metformin HCl (Glucophage) 500 mg PO BIDMEALS [facility] Last Admin: 11/08/18 08:24 Dose: 500 mg Simvastatin (Zocor) 40 mg PO BEDTIME [facility] Sodium Chloride (Saline Flush) 10 ml FLUSH ASDIRECTED PRN PRN Reason: Keep Vein Open Vitamin B Complex/Vit C/Vit E/Zinc (Stress Formula With Zinc) 1 tab PO DAILY [facility] Last Admin: 11/08/18 08:24 Dose: 1 tab Discontinued Medications Hydrocodone Bitart/Acetaminophen ([place] 325-10 Mg) 1 tab PO ONETIME ONE Stop: 11/08/18 06:03 Last Admin: 11/08/18 06:14 Dose: Not Given Hydrocodone Bitart/Acetaminophen ([place] 325-10 Mg) 1 tab PO ONETIME [facility] Stop: 11/08/18 06:06 Last Admin: 11/08/18 06:14 Dose: 1 tab Hydromorphone HCl (Dilaudid) 1 mg IVPUSH ONETIME ONE Stop: 11/08/18 04:25 Last Admin: 11/08/18 04:31 Dose: 0.5 mg Ondansetron HCl (Zofran) 4 mg IVPUSH ONETIME ONE Stop: 11/08/18 04:25 Last Admin: 11/08/18 04:29 Dose: 4 mg - Exam General: Alert HEENT: Pupils Equal Neck: Supple Lungs: Clear to Auscultation Cardiovascular: Regular Rate Extremities: Arm Pain Skin: Warm Psy/Mental Status: Alert, Normal Affect, Normal Mood - Problem List & Annotations (1) Radial head fracture, closed SNOMED Code(s): 25882354 Code(s): S52.123A - DISP FX OF HEAD OF UNSP RADIUS, INIT FOR CLOS FX Status : Acute Current Visit: Yes (2) Fracture, humerus, anatomical neck SNOMED Code(s): 980639639 Code(s): S42.293A - OTH DISP FX OF UPPER END OF UNSP HUMERUS, INIT FOR CLOS FX Status: Acute Current Visit: Yes (3) UTI (urinary tract infection) SNOMED Code(s): 81010096 Code(s): N39.0 - URINARY TRACT INFECTION, SITE NOT SPECIFIED Status: Acute Current Visit: Yes (4) Weakness SNOMED Code(s): 61605541 Code(s): R53.1 - WEAKNESS Status: Acute Current Visit: Yes (5) Diabetes type 2, uncontrolled SNOMED Code(s): 501726361, 477935560 Code(s): E11.65 - TYPE 2 DIABETES MELLITUS WITH HYPERGLYCEMIA Status: Chronic Priority: Medium Current Visit: No (6) Essential hypertension SNOMED Code(s): 50597855 Code(s): I10 - ESSENTIAL (PRIMARY) HYPERTENSION Status: Chronic Priority : Medium Current Visit: No - Problem List Review Problem List Initiated/Reviewed/Updated: Yes - Assessment Assessment:: UTI Left humerus fracture Left radial fracture DM- II - Plan Plan:: Patient will remain on IV antibiotics Will recheck UA Therapy to see
[2018-11-08] MEDS: Nitrofurantoin Monohydrate/Macrocrystalline 100 MG Cap PO SCH (10:39)
[2018-11-08] MEDS: Famotidine 20 MG Tab PO SCH ×2 (10:41→20:40)
[2018-11-08] MEDS: Enoxaparin 40 MG/0.4 ML Syringe SUBCUT SCH (10:42)
[2018-11-08] MEDS: Furosemide 20 MG Tab PO SCH (10:42)
[2018-11-08] MEDS: Insulin Lispro 100 Unit/ML 3 ML KwikPen SUBCUT SCH ×3 (10:57→18:15)
[2018-11-08] MEDS: Insulin Glargine,Human Rec. Analog 100 Units/ML 3 ML Pen SUBCUT SCH (11:20)
[2018-11-08] MEDS: Acetaminophen/HYDROcodone 325-10 MG Tab PO PRN ×2 (13:02→20:40)
[2018-11-08] MEDS: Simvastatin 40 MG Tab PO SCH (20:40)
[2018-11-09] MEDS ORDERED: Ibuprofen 200 MG Tab PO PRN (08:08)
--- NOTE | 2018-11-09 08:15 | PCM.PN ---
- General Info Date of Service: 11/09/18 Admission Dx/Problem (Free Text): Left humerus fracture, Left radial fracture, weakness, UTI Subjective Update: pt states she is still having considerable pain. Has refused to wear sling. Has refused to get up to use commode or even bed sykes. - Review of Systems General: Reports: Weakness Musculoskeletal: Reports: Arm Pain - Patient Data Vitals - Most Recent: Last Vital Signs Temp 36.6 C 11/09/18 05:44 Pulse 109 H 11/09/18 05:44 Resp 16 11/09/18 05:44 BP 145/61 H 11/09/18 05:44 Pulse Ox 91 L 11/09/18 05:44 Weight - Most Recent: 86.183 kg I&O - Last 24 Hours: Intake & Output 11/08/18 11/09/18 11/09/18 22:59 06:59 14:59 Intake Total 100 Output Total 300 Balance -300 100 Lab Results Last 24 Hours: Laboratory Results - last 24 hr 11/08/18 11/08/18 11/09/18 Range/Units 10:46 16:28 06:12 WBC (4.0-10.0) x10^3/uL RBC (4.00-5.50) x10^6/uL Hgb (12.0-16.0) g/dL Hct (33.0-47.0) % MCV (78.0-93.0) fL MCH (26.0-32.0) pg MCHC (32.0-36.0) g/dL RDW Coeff of Gopal (10.0-15.0) % Plt Count (130-400) x10^3/uL POC Glucose 273 H 223 H 208 H (74-106) mg/dL 11/09/18 Range/Units 06:25 WBC 5.6 (4.0-10.0) x10^3/uL RBC 3.98 L (4.00-5.50) x10^6/uL Hgb 11.8 L D (12.0-16.0) g/dL Hct 37.2 (33.0-47.0) % MCV 93.5 H (78.0-93.0) fL MCH 29.6 (26.0-32.0) pg MCHC 31.7 L (32.0-36.0) g/dL RDW Coeff of Gopal 15.2 H (10.0-15.0) % Plt Count 231 (130-400) x10^3/uL POC Glucose (74-106) mg/dL Quang Results Last 24 Hours: Microbiology 11/08/18 06:52 Aerobic Blood Culture - Preliminary Blood - Venous - Lab Draw NO GROWTH AFTER 1 DAY Anaerobic Blood Culture - Final 11/08/18 06:42 Aerobic Blood Culture - Preliminary Blood - Venous NO GROWTH AFTER 1 DAY Anaerobic Blood Culture - Preliminary NO GROWTH AFTER 1 DAY Med Orders - Current: Current Medications Hydrocodone Bitart/Acetaminophen ([place] 325-10 Mg) 1 tab PO Q4H PRN PRN Reason: Pain (moderate 4-6) Last Admin: 11/08/18 20:40 Dose: 1 tab Aspirin (Halfprin) 81 mg PO DAILY [facility] Last Admin: 11/08/18 08:24 Dose: 81 mg Ceftriaxone Sodium (Rocephin) 2 gm IVPUSH DAILY [facility] Last Admin: 11/08/18 08:24 Dose: 2 gm Enoxaparin Sodium (Lovenox) 40 mg SUBCUT DAILY [facility] Last Admin: 11/08/18 10:42 Dose: 40 mg Famotidine (Pepcid) 20 mg PO BID [facility] Last Admin: 11/08/18 20:40 Dose: 20 mg Furosemide (Lasix) 20 mg PO DAILY [facility] Last Admin: 11/08/18 10:42 Dose: 20 mg Gabapentin (Neurontin) 300 mg PO TID [facility] Last Admin: 11/08/18 20:40 Dose: 300 mg Ibuprofen (Motrin) 400 mg PO Q4H PRN PRN Reason: Pain/Fever Insulin Glargine (Lantus Solostar) 33 units SUBCUT DAILY [facility] Last Admin: 11/08/18 11:20 Dose: 33 unit Insulin Human Lispro (Humalog) 28 unit SUBCUT TIDMEALS [facility] Lisinopril (Prinivil) 20 mg PO DAILY [facility] Last Admin: 11/08/18 08:24 Dose: 20 mg Metformin HCl (Glucophage) 500 mg PO BIDMEALS [facility] Last Admin: 11/08/18 18:16 Dose: 500 mg Nitrofurantoin Macrocrystals (Macrobid) 100 mg PO DAILY [facility] Last Admin: 11/08/18 10:39 Dose: 100 mg Senna/Docusate Sodium (Senna Plus) 2 tab PO DAILY [facility] Last Admin: 11/08/18 10:40 Dose: 2 tab Simvastatin (Zocor) 40 mg PO BEDTIME [facility] Last Admin: 11/08/18 20:40 Dose: 40 mg Sodium Chloride (Saline Flush) 10 ml FLUSH ASDIRECTED PRN PRN Reason: Keep Vein Open Vitamin B Complex/Vit C/Vit E/Zinc (Stress Formula With Zinc) 1 tab PO DAILY [facility] Last Admin: 11/08/18 08:24 Dose: 1 tab Discontinued Medications Hydrocodone Bitart/Acetaminophen ([place] 325-10 Mg) 1 tab PO ONETIME ONE Stop: 11/08/18 06:03 Last Admin: 11/08/18 06:14 Dose: Not Given Hydrocodone Bitart/Acetaminophen ([place] 325-10 Mg) 1 tab PO ONETIME STA Stop: 11/08/18 06:06 Last Admin: 11/08/18 06:14 Dose: 1 tab Hydromorphone HCl (Dilaudid) 1 mg IVPUSH ONETIME ONE Stop: 11/08/18 04:25 Last Admin: 11/08/18 04:31 Dose: 0.5 mg Insulin Glargine (Lantus Solostar) 35 units SUBCUT DAILY [facility] Insulin Glargine (Lantus Solostar) 33 units SUBCUT DAILY [facility] Insulin Human Lispro (Humalog) 24 unit SUBCUT TIDMEALS [facility] Last Admin: 11/08/18 18:15 Dose: 24 unit Ondansetron HCl (Zofran) 4 mg IVPUSH ONETIME ONE Stop: 11/08/18 04:25 Last Admin: 11/08/18 04:29 Dose: 4 mg - Exam General: Alert, Oriented HEENT: Pupils Equal, Pupils Reactive Lungs: Clear to Auscultation Cardiovascular: Regular Rate GI/Abdominal Exam: Normal Bowel Sounds Extremities: Other (Contusion noted to right upper extremity, no swelling in fingers) Skin: Warm, Dry, Intact - Problem List & Annotations (1) Fracture, humerus, anatomical neck SNOMED Code(s): 759510082 Code(s): S42.293A - OTH DISP FX OF UPPER END OF UNSP HUMERUS, INIT FOR CLOS FX Status: Acute Current Visit: Yes (2) UTI (urinary tract infection) SNOMED Code(s): 06995042 Code(s): N39.0 - URINARY TRACT INFECTION, SITE NOT SPECIFIED Status: Acute Current Visit: Yes (3) Weakness SNOMED Code(s): 11579443 Code(s): R53.1 - WEAKNESS Status: Acute Current Visit: Yes (4) Diabetes type 2, uncontrolled SNOMED Code(s): 580007164, 169610819 Code(s): E11.65 - TYPE 2 DIABETES MELLITUS WITH HYPERGLYCEMIA Status: Chronic Priority: Medium Current Visit: No (5) Essential hypertension SNOMED Code(s): 41359927 Code(s): I10 - ESSENTIAL (PRIMARY) HYPERTENSION Status: Chronic Priority : Medium Current Visit: No - Problem List Review Problem List Initiated/Reviewed/Updated: Yes - My Orders Last 24 Hours: My Active Orders 11/08/18 08:55 URINALYSIS W/MICROSCOPIC [UA W/MICROSCOPIC] [URIN] Routine 11/08/18 10:15 Docusate Sodium/Sennosides [Senna Plus] 2 tab PO DAILY Famotidine [Pepcid] 20 mg PO BID Furosemide [Lasix] 20 mg PO DAILY Nitrofurantoin [place]/Macrocryst [Macrobid] 100 mg PO DAILY 11/08/18 11:00 Insulin Glarg,Human.Rec.Analog [LantUS Solostar] 33 units SUBCUT DAILY 11/09/18 08:08 Ibuprofen [Motrin] 400 mg PO Q4H PRN 11/09/18 12:00 Insulin Lispro [HumaLOG] 28 unit SUBCUT TIDMEALS - Assessment Assessment:: UTI - on rocephin Left humerus fracture Left ulnar fracture DM- II - blood sugars still high - Plan Plan:: Discussion held with patient that compliance with sling and immobilization is best pain management Will add ibuprofen Humalog increased at meal time Therapies to see Case Management to see for discharge planning
[2018-11-09] MEDS: Insulin Glargine,Human Rec. Analog 100 Units/ML 3 ML Pen SUBCUT SCH (08:24)
[2018-11-09] MEDS: Insulin Lispro 100 Unit/ML 3 ML KwikPen SUBCUT SCH ×4 (08:31→18:59)
[2018-11-09] MEDS: Multivitamin, Stress Formula with Zinc Tab PO SCH (08:32)
[2018-11-09] MEDS: cefTRIAXone 2 GM Vial IVPUSH SCH (08:32)
[2018-11-09] MEDS: Enoxaparin 40 MG/0.4 ML Syringe SUBCUT SCH (08:32)
[2018-11-09] MEDS: Famotidine 20 MG Tab PO SCH ×2 (08:33→19:32)
[2018-11-09] MEDS: Gabapentin 300 MG Cap PO SCH ×3 (08:33→19:32)
[2018-11-09] MEDS: Acetaminophen/HYDROcodone 325-10 MG Tab PO PRN ×2 (08:33→19:33)
[2018-11-09] MEDS: Furosemide 20 MG Tab PO SCH (08:33)
[2018-11-09] MEDS: metFORMIN 500 MG Tab PO SCH ×2 (08:33→17:35)
[2018-11-09] MEDS: Lisinopril 20 MG Tab PO SCH (08:33)
[2018-11-09] MEDS: Aspirin 81 MG Tab.EC PO SCH (08:33)
[2018-11-09] MEDS: Nitrofurantoin Monohydrate/Macrocrystalline 100 MG Cap PO SCH (08:33)
[2018-11-09] MEDS: Simvastatin 40 MG Tab PO SCH (19:32)
[2018-11-10] MEDS: Insulin Glargine,Human Rec. Analog 100 Units/ML 3 ML Pen SUBCUT SCH (08:30)
[2018-11-10] MEDS: Enoxaparin 40 MG/0.4 ML Syringe SUBCUT SCH (08:32)
[2018-11-10] MEDS: Famotidine 20 MG Tab PO SCH (08:32)
[2018-11-10] MEDS: Gabapentin 300 MG Cap PO SCH ×2 (08:33→12:41)
[2018-11-10] MEDS: Furosemide 20 MG Tab PO SCH (08:33)
[2018-11-10] MEDS: Nitrofurantoin Monohydrate/Macrocrystalline 100 MG Cap PO SCH (08:33)
[2018-11-10] MEDS: metFORMIN 500 MG Tab PO SCH (08:34)
[2018-11-10] MEDS: Multivitamin, Stress Formula with Zinc Tab PO SCH (08:34)
[2018-11-10] MEDS: Lisinopril 20 MG Tab PO SCH (08:34)
[2018-11-10] MEDS: Insulin Lispro 100 Unit/ML 3 ML KwikPen SUBCUT SCH ×2 (08:37→12:41)
[2018-11-10] MEDS: Aspirin 81 MG Tab.EC PO SCH (08:37)
[2018-11-10] MEDS: Acetaminophen/HYDROcodone 325-10 MG Tab PO PRN (09:00)
--- NOTE | 2018-11-10 15:09 | PCM.DCSUM1 ---
Discharge Summary - Hospital Course Free Text/Narrative:: 83 year old female admitted through the ER where she presented with left arm pain. Patient was being treated for UTI as outpatient. Her weakness persisted. She fell at home sustaining a left humerus fracture. Diagnosis: Stroke: No - Discharge Data Discharge Date: 11/10/18 Discharge Disposition: DC/Tfer W/I Hosp To Swing 61 Condition: Fair - Discharge Diagnosis/Problem(s) (1) Fracture, humerus, anatomical neck SNOMED Code(s): 290082066 ICD Code: S42.293A - OTH DISP FX OF UPPER END OF UNSP HUMERUS, INIT FOR CLOS FX Status: Acute (2) UTI (urinary tract infection) SNOMED Code(s): 55098280 ICD Code: N39.0 - URINARY TRACT INFECTION, SITE NOT SPECIFIED Status: Acute (3) Weakness SNOMED Code(s): 95756674 ICD Code: R53.1 - WEAKNESS Status: Acute (4) Diabetes type 2, uncontrolled SNOMED Code(s): 458393889, 854426268 ICD Code: E11.65 - TYPE 2 DIABETES MELLITUS WITH HYPERGLYCEMIA Status: Chronic Priority: Medium (5) Essential hypertension SNOMED Code(s): 06155319 ICD Code: I10 - ESSENTIAL (PRIMARY) HYPERTENSION Status: Chronic Priority : Medium - Patient Summary/Data Consults: Consultations 11/08/18 15:47 Consult to Physical Therapy [PT Evaluation and Treatment] [CONS] Routine OT Evaluation and Treatment [CONS] Routine 11/09/18 08:15 Consult to Case Management/Heat Treat Technician [CONS] Routine Hospital Course: pt was admitted for acute care. Left humerus fracture treated with immobilization. Orthopedics consult obtained with plans for patient to follow up as out patient in one week. Therapy consults ordered. Antibiotic regimen for treatment of UTI was adjusted. pt was started on Rocephin. Difficult time obtaining urine specimen due to patient's incontinence. On Day 2 of hospitalization, specimen collected via straight cath. No further evidence of infection. WBC was normal and patient had remained afebrile. Rocephin was discontinued. Pt's blood sugars monitored closely. Insulin adjusted. - Patient Instructions Diet: Diabetic Diet - Discharge Plan *PRESCRIPTION DRUG MONITORING PROGRAM REVIEWED*: Not Applicable Home Medications: Home Meds Aspirin [Lo-Dose Aspirin EC] 81 mg PO DAILY 02/17/17 [History] Gabapentin [Neurontin] 300 mg PO TID 02/17/17 [History] Insulin Aspart [Novolog Flexpen] 28 units SQ TIDMEALS 02/17/17 [History] Multivitamin [Multivitamins] 1 tab PO DAILY 02/17/17 [History] Simvastatin [Zocor] 40 mg PO BEDTIME 02/17/17 [History] metFORMIN [Glucophage XR] 500 mg PO BIDMEALS 02/17/17 [History] Insulin Degludec (Tresiba) 33 units SQ DAILY 02/18/17 [History] Lisinopril 20 mg PO DAILY 04/03/18 [History] Famotidine 20 mg PO BID 11/08/18 [History] Furosemide [Lasix] 20 mg PO DAILY 11/08/18 [History] Mupirocin Oint [Bactroban Oint] 1 applic TOP DAILY PRN 11/08/18 [History] Nitrofurantoin Monohyd/M-Cryst [Macrobid 100 mg Capsule] 100 mg PO DAILY [History] Sennosides/Docusate Sodium [Senna-Docusate Sodium Tablet] 2 tab PO DAILY [History] Sulfamethoxazole/Trimethoprim [Sulfamethoxazole-Tmp Ds Tablet] 1 tab PO BID [History] Forms: ED Department Discharge Referrals: PCP,Unobtain [Primary Care Provider] - - Discharge Summary/Plan Comment DC Time >30 min.: No Discharge Summary/Plan Comment: Pt will be transferred to swing bed for continued therapy. medication per reconciliation - General Info Date of Service: 11/10/18 Admission Dx/Problem (Free Text: Left humerus fracture, Left radial fracture, weakness, UTI - Review of Systems General: Reports: Weakness HEENT: Reports: No Symptoms Pulmonary: Reports: No Symptoms Cardiovascular: Reports: No Symptoms Gastrointestinal: Reports: No Symptoms Genitourinary: Reports: Incontinence Musculoskeletal: Reports: Arm Pain - Patient Data Vitals - Most Recent: Last Vital Signs Temp 36.6 C 11/10/18 10:00 Pulse 90 11/10/18 10:00 Resp 16 11/10/18 10:00 BP 134/71 11/10/18 10:00 Pulse Ox 93 L 11/10/18 10:00 Weight - Most Recent: 86.183 kg I&O - Last 24 hours: Intake & Output 08/22/19 08/23/19 08/23/19 22:59 06:59 14:59 Intake Total 240 100 120 Output Total 300 Balance 240 -200 120 Lab Results - Last 24 hrs: Laboratory Results - last 24 hr 11/09/18 11/09/18 11/09/18 Range/Units 11:37 17:34 20:26 POC Glucose 157 H 87 141 H (74-106) mg/dL 11/10/18 11/10/18 Range/Units 06:29 12:39 POC Glucose 182 H 140 H (74-106) mg/dL AVI Results - Last 24 hrs: Microbiology 11/08/18 06:52 Aerobic Blood Culture - Preliminary Blood - Venous - Lab Draw NO GROWTH AFTER 2 DAYS Anaerobic Blood Culture - Final 11/08/18 06:42 Aerobic Blood Culture - Preliminary Blood - Venous NO GROWTH AFTER 2 DAYS Anaerobic Blood Culture - Preliminary NO GROWTH AFTER 2 DAYS Med Orders - Current: Current Medications Discontinued Medications Hydrocodone Bitart/Acetaminophen ([place] 325-10 Mg) 1 tab PO ONETIME ONE Stop: 11/08/18 06:03 Last Admin: 11/08/18 06:14 Dose: Not Given Hydrocodone Bitart/Acetaminophen ([place] 325-10 Mg) 1 tab PO ONETIME STA Stop: 11/08/18 06:06 Last Admin: 11/08/18 06:14 Dose: 1 tab Hydrocodone Bitart/Acetaminophen ([place] 325-10 Mg) 1 tab PO Q4H PRN PRN Reason: Pain (moderate 4-6) Last Admin: 11/10/18 09:00 Dose: 1 tab Aspirin (Halfprin) 81 mg PO DAILY [facility] Last Admin: 11/10/18 08:37 Dose: 81 mg Ceftriaxone Sodium (Rocephin) 2 gm IVPUSH DAILY [facility] Last Admin: 11/09/18 08:32 Dose: 2 gm Enoxaparin Sodium (Lovenox) 40 mg SUBCUT DAILY [facility] Last Admin: 11/10/18 08:32 Dose: 40 mg Famotidine (Pepcid) 20 mg PO BID [facility] Last Admin: 11/10/18 08:32 Dose: 20 mg Furosemide (Lasix) 20 mg PO DAILY [facility] Last Admin: 11/10/18 08:33 Dose: 20 mg Gabapentin (Neurontin) 300 mg PO TID [facility] Last Admin: 11/10/18 12:41 Dose: 300 mg Hydromorphone HCl (Dilaudid) 1 mg IVPUSH ONETIME ONE Stop: 11/08/18 04:25 Last Admin: 11/08/18 04:31 Dose: 0.5 mg Ibuprofen (Motrin) 400 mg PO Q4H PRN PRN Reason: Pain/Fever Insulin Glargine (Lantus Solostar) 35 units SUBCUT DAILY [facility] Insulin Glargine (Lantus Solostar) 33 units SUBCUT DAILY [facility] Insulin Glargine (Lantus Solostar) 33 units SUBCUT DAILY [facility] Last Admin: 11/10/18 08:30 Dose: 33 unit Insulin Human Lispro (Humalog) 24 unit SUBCUT TIDMEALS [facility] Last Admin: 11/09/18 08:55 Dose: Not Given Insulin Human Lispro (Humalog) 28 unit SUBCUT TIDMEALS [facility] Last Admin: 11/10/18 12:41 Dose: 28 units Lisinopril (Prinivil) 20 mg PO DAILY [facility] Last Admin: 11/10/18 08:34 Dose: 20 mg Metformin HCl (Glucophage) 500 mg PO BIDMEALS [facility] Last Admin: 11/10/18 08:34 Dose: 500 mg Nitrofurantoin Macrocrystals (Macrobid) 100 mg PO DAILY [facility] Last Admin: 11/10/18 08:33 Dose: 100 mg Ondansetron HCl (Zofran) 4 mg IVPUSH ONETIME ONE Stop: 11/08/18 04:25 Last Admin: 11/08/18 04:29 Dose: 4 mg Senna/Docusate Sodium (Senna Plus) 2 tab PO DAILY [facility] Last Admin: 11/10/18 08:32 Dose: 2 tab Simvastatin (Zocor) 40 mg PO BEDTIME [facility] Last Admin: 11/09/18 19:32 Dose: 40 mg Sodium Chloride (Saline Flush) 10 ml FLUSH ASDIRECTED PRN PRN Reason: Keep Vein Open Last Admin: 11/09/18 08:34 Dose: 10 ml Vitamin B Complex/Vit C/Vit E/Zinc (Stress Formula With Zinc) 1 tab PO DAILY [facility] Last Admin: 11/10/18 08:34 Dose: 1 tab - Exam General: Reports: Alert, Oriented HEENT: Reports: Pupils Equal, Pupils Reactive Neck: Reports: Supple Lungs: Reports: Clear to Auscultation Cardiovascular: Reports: Regular Rate GI/Abdominal Exam: Normal Bowel Sounds Extremities: Arm Pain Skin: Reports: Warm, Dry
== END 2018-11-10 13:43 | disposition swing bed (61) | DRG 563 ==
LOC: VM.ED 03:30 → VM.MS 05:21
PROVIDERS: ADMIT Physician Assistant; ATTEND Family Medicine
DX: S42.292A Other displaced fracture of upper end of left humerus, initial encounter for closed fracture (principal); N39.0 Urinary tract infection, site not specified; R53.1 Weakness; S52.122D Displaced fracture of head of left radius, subsequent encounter for closed fracture with routine healing; S52.202D Unspecified fracture of shaft of left ulna, subsequent encounter for closed fracture with routine healing; W19.XXXD Unspecified fall, subsequent encounter; E11.65 Type 2 diabetes mellitus with hyperglycemia; R41.0 Disorientation, unspecified; I10 Essential (primary) hypertension; E78.00 Pure hypercholesterolemia, unspecified; M54.9 Dorsalgia, unspecified; G89.29 Other chronic pain; M19.90 Unspecified osteoarthritis, unspecified site; E11.9 Type 2 diabetes mellitus without complications; W06.XXXA Fall from bed, initial encounter; Z79.82 Long term (current) use of aspirin; Z79.4 Long term (current) use of insulin; Z79.899 Other long term (current) drug therapy; Z90.49 Acquired absence of other specified parts of digestive tract; Z90.710 Acquired absence of both cervix and uterus; Z91.81 History of falling; Z86.718 Personal history of other venous thrombosis and embolism; Y93.89 Activity, other specified; Y92.009 Unspecified place in unspecified non-institutional (private) residence as the place of occurrence of the external cause
CPT/HCPCS: 73030; 96374; 96375; 99284; 99285; J1170; J2405; 36415; 80053; 81001; 82962; 83605; 83735; 84100; 85025; 85027; 85610; 86140; 87040; 97110-GO; 97110-GP; 97161-GP; 97165-GO; 97530-GP; A9270-GY; J0696; J1650; J1815-GY

== ENCOUNTER 2018-11-10 12:00 | Inpatient (IN) | payer MEDICARE, BC ==
[2018-11-10] MEDS ORDERED: METFORMIN 500 MG PO SCH (18:00)
[2018-11-10] MEDS: GABAPENTIN PO SCH (19:53)
[2018-11-10] MEDS: Famotidine 20 MG Tab PO SCH (19:55)
[2018-11-10] MEDS: SIMVASTATIN 40 MG PO SCH (19:56)
[2018-11-10] MEDS ORDERED: [UNRECOGNIZED DRUG - OTHER] PO SCH (20:00)
[2018-11-10] MEDS: ACET PO PRN (20:36)
[2018-11-10] MEDS: HYDROCODONE PO PRN (20:36)
[2018-11-11] MEDS ORDERED: ENOXAPARIN 40 MG/0.4 ML SUBCUT SCH (08:00)
[2018-11-11] MEDS ORDERED: Enoxaparin 30 MG/0.3 ML Syringe SUBCUT SCH (08:00)
[2018-11-11] MEDS: [UNRECOGNIZED DRUG - OTHER] PO SCH (08:05)
[2018-11-11] MEDS: [UNRECOGNIZED DRUG - OTHER] PO SCH (08:06)
[2018-11-11] MEDS: GABAPENTIN PO SCH ×3 (08:06→20:15)
[2018-11-11] MEDS: NITROFURANTOIN PO SCH (08:06)
[2018-11-11] MEDS: LISINOPRIL 20 MG PO SCH (08:06)
[2018-11-11] MEDS: ENOXAPARIN 40 MG SUBCUT SCH (08:09)
[2018-11-11] MEDS: ACET PO PRN ×3 (08:12→22:16)
[2018-11-11] MEDS: HYDROCODONE PO PRN ×3 (08:12→22:16)
[2018-11-11] MEDS: Multivitamin, Stress Formula with Zinc Tab PO SCH (08:18)
[2018-11-11] MEDS: Aspirin 81 MG Tab.EC PO SCH (08:19)
[2018-11-11] MEDS: Famotidine 20 MG Tab PO SCH ×2 (08:19→20:15)
[2018-11-11] MEDS: Insulin Lispro 100 Unit/ML 3 ML KwikPen SUBCUT SCH ×2 (13:32→17:43)
[2018-11-11] MEDS: Polyethylene Glycol 3350 Powder 17 GM Packet PO PRN (16:33)
[2018-11-11] MEDS: SIMVASTATIN 40 MG PO SCH (20:15)
[2018-11-12] MEDS: Polyethylene Glycol 3350 Powder 17 GM Packet PO PRN (08:59)
[2018-11-12] MEDS: GABAPENTIN PO SCH ×3 (09:00→19:58)
[2018-11-12] MEDS: Multivitamin, Stress Formula with Zinc Tab PO SCH (09:00)
[2018-11-12] MEDS: Aspirin 81 MG Tab.EC PO SCH (09:01)
[2018-11-12] MEDS: Famotidine 20 MG Tab PO SCH ×2 (09:02→19:53)
[2018-11-12] MEDS: [UNRECOGNIZED DRUG - OTHER] PO SCH (09:02)
[2018-11-12] MEDS: LISINOPRIL 20 MG PO SCH (09:02)
[2018-11-12] MEDS: NITROFURANTOIN PO SCH (09:03)
[2018-11-12] MEDS: [UNRECOGNIZED DRUG - OTHER] PO SCH (09:03)
[2018-11-12] MEDS: Insulin Lispro 100 Unit/ML 3 ML KwikPen SUBCUT SCH ×3 (09:07→18:13)
[2018-11-12] MEDS: ENOXAPARIN 40 MG SUBCUT SCH (09:09)
[2018-11-12] MEDS: Ibuprofen 200 MG Tab PO PRN ×2 (12:36→19:53)
[2018-11-12] MEDS ORDERED: Bisacodyl 10 MG Supp RECTAL ONE (19:41)
[2018-11-12] MEDS ORDERED: Sodium Phosphate,Monobasic/Sodium Phosphate,Dibasic Enema 133 ML Bottle RECTAL ONE (19:42)
[2018-11-12] MEDS: SIMVASTATIN 40 MG PO SCH (22:14)
[2018-11-12] MEDS: ACET PO PRN (22:29)
[2018-11-12] MEDS: HYDROCODONE PO PRN (22:29)
[2018-11-13] MEDS: NITROFURANTOIN PO SCH (07:58)
[2018-11-13] MEDS: LISINOPRIL 20 MG PO SCH (07:58)
[2018-11-13] MEDS: [UNRECOGNIZED DRUG - OTHER] PO SCH (07:58)
[2018-11-13] MEDS: [UNRECOGNIZED DRUG - OTHER] PO SCH (07:58)
[2018-11-13] MEDS: GABAPENTIN PO SCH ×3 (07:58→19:17)
[2018-11-13] MEDS: ENOXAPARIN 40 MG SUBCUT SCH (07:59)
[2018-11-13] MEDS: Aspirin 81 MG Tab.EC PO SCH (07:59)
[2018-11-13] MEDS: Insulin Lispro 100 Unit/ML 3 ML KwikPen SUBCUT SCH ×3 (08:00→18:20)
[2018-11-13] MEDS: Famotidine 20 MG Tab PO SCH ×2 (08:00→19:18)
[2018-11-13] MEDS: Multivitamin, Stress Formula with Zinc Tab PO SCH (08:00)
[2018-11-13] MEDS: SIMVASTATIN 40 MG PO SCH (19:17)
[2018-11-14] MEDS: Multivitamin, Stress Formula with Zinc Tab PO SCH (08:27)
[2018-11-14] MEDS: Famotidine 20 MG Tab PO SCH ×2 (08:27→20:05)
[2018-11-14] MEDS: Aspirin 81 MG Tab.EC PO SCH (08:27)
[2018-11-14] MEDS: [UNRECOGNIZED DRUG - OTHER] PO SCH (08:27)
[2018-11-14] MEDS: LISINOPRIL 20 MG PO SCH (08:28)
[2018-11-14] MEDS: NITROFURANTOIN PO SCH (08:28)
[2018-11-14] MEDS: [UNRECOGNIZED DRUG - OTHER] PO SCH (08:28)
[2018-11-14] MEDS: ENOXAPARIN 40 MG SUBCUT SCH (08:30)
[2018-11-14] MEDS: GABAPENTIN PO SCH ×3 (08:31→20:05)
[2018-11-14] MEDS: Insulin Lispro 100 Unit/ML 3 ML KwikPen SUBCUT SCH (08:34)
[2018-11-14] MEDS: NOVOLOG SUBCUT SCH ×2 (11:05→18:30)
[2018-11-14] MEDS: ACET PO PRN ×2 (12:19→21:55)
[2018-11-14] MEDS: HYDROCODONE PO PRN ×2 (12:19→21:55)
[2018-11-14] MEDS ORDERED: Tolterodine 2 MG Cap.ER PO SCH (13:15)
[2018-11-14] MEDS: OXYBUTYNIN 5 MG PO SCH (17:17)
[2018-11-14] MEDS: SIMVASTATIN 40 MG PO SCH (20:06)
[2018-11-14] MEDS: Ibuprofen 200 MG Tab PO PRN (20:07)
[2018-11-15] MEDS: NOVOLOG SUBCUT SCH ×3 (08:01→18:01)
[2018-11-15] MEDS: NITROFURANTOIN PO SCH (08:02)
[2018-11-15] MEDS: [UNRECOGNIZED DRUG - OTHER] PO SCH (08:02)
[2018-11-15] MEDS: [UNRECOGNIZED DRUG - OTHER] PO SCH (08:02)
[2018-11-15] MEDS: Aspirin 81 MG Tab.EC PO SCH (08:03)
[2018-11-15] MEDS: Famotidine 20 MG Tab PO SCH ×2 (08:04→21:06)
[2018-11-15] MEDS: Multivitamin, Stress Formula with Zinc Tab PO SCH (08:04)
[2018-11-15] MEDS: LISINOPRIL 20 MG PO SCH (08:05)
[2018-11-15] MEDS: ENOXAPARIN 40 MG SUBCUT SCH (08:05)
[2018-11-15] MEDS: GABAPENTIN PO SCH ×3 (08:05→21:06)
[2018-11-15] MEDS: OXYBUTYNIN 5 MG PO SCH (08:06)
[2018-11-15] MEDS: Ibuprofen 200 MG Tab PO PRN ×2 (10:34→16:58)
[2018-11-15] MEDS: SIMVASTATIN 40 MG PO SCH (21:06)
[2018-11-15] MEDS: ACET PO PRN (21:07)
[2018-11-15] MEDS: HYDROCODONE PO PRN (21:07)
[2018-11-16] MEDS: Famotidine 20 MG Tab PO SCH ×2 (07:44→21:07)
[2018-11-16] MEDS: Multivitamin, Stress Formula with Zinc Tab PO SCH (07:44)
[2018-11-16] MEDS: Aspirin 81 MG Tab.EC PO SCH (07:44)
[2018-11-16] MEDS: GABAPENTIN PO SCH ×3 (07:45→21:07)
[2018-11-16] MEDS: [UNRECOGNIZED DRUG - OTHER] PO SCH (07:46)
[2018-11-16] MEDS: NITROFURANTOIN PO SCH (07:46)
[2018-11-16] MEDS: OXYBUTYNIN 5 MG PO SCH (07:46)
[2018-11-16] MEDS: [UNRECOGNIZED DRUG - OTHER] PO SCH (07:46)
[2018-11-16] MEDS: LISINOPRIL 20 MG PO SCH (07:48)
[2018-11-16] MEDS: NOVOLOG SUBCUT SCH ×3 (07:48→18:04)
[2018-11-16] MEDS: ACET PO PRN ×2 (09:37→21:07)
[2018-11-16] MEDS: HYDROCODONE PO PRN ×2 (09:37→21:07)
--- NOTE | 2018-11-16 11:19 | PCM.SN ---
- Free Text/Narrative Note: Called by patient's daughter today regarding increasing pain of the left wrist and upper arm. Daughter requesting xrays to be completed again. No fall while in hospital. Patient has been doing well. Will call daughter when results are available.
[2018-11-16] MEDS: SIMVASTATIN 40 MG PO SCH (21:08)
[2018-11-17] MEDS: NITROFURANTOIN PO SCH (08:01)
[2018-11-17] MEDS: Famotidine 20 MG Tab PO SCH (08:01)
[2018-11-17] MEDS: [UNRECOGNIZED DRUG - OTHER] PO SCH (08:01)
[2018-11-17] MEDS: Multivitamin, Stress Formula with Zinc Tab PO SCH (08:01)
[2018-11-17] MEDS: Aspirin 81 MG Tab.EC PO SCH (08:01)
[2018-11-17] MEDS: OXYBUTYNIN 5 MG PO SCH (08:01)
[2018-11-17] MEDS: [UNRECOGNIZED DRUG - OTHER] PO SCH (08:02)
[2018-11-17] MEDS: LISINOPRIL 20 MG PO SCH (08:02)
[2018-11-17] MEDS: NOVOLOG SUBCUT SCH (08:03)
[2018-11-17] MEDS: HYDROCODONE PO PRN (08:04)
[2018-11-17] MEDS: GABAPENTIN PO SCH (08:04)
[2018-11-17] MEDS: ACET PO PRN (08:04)
--- NOTE | 2018-11-17 08:26 | CR ---
[id number] RAD/RAD Wrist Left 3V Min Exam: RAD Wrist Left 3V Min Indication:PAIN, FALL, STATUS POST FRACTURE. Comparison: No prior imaging for comparison. Discussion: Radiopaque dressing overlying the distal forearm, wrist, and hand. There is an apparent transversely orientated fracture the distal radial metaphysis, nondisplaced. However, evaluation is limited by the radiopaque dressing. No other definitive evidence of a fracture. No prior imaging is available for comparison. Impression: As above. Dennys Ceja MD 11/17/18 0824 Thank you for allowing us to participate in the care of your patient.
--- NOTE | 2018-11-17 08:28 | CR ---
[id number] RAD/RAD Humerus Left 2V Exam: RAD Humerus Left 2V Indication:PAIN, FALL, STATUS POST FRACTURE. Comparison: 11/08/2018. Discussion: No change in alignment of previously seen comminuted and impacted fracture of the proximal humerus centered at the surgical neck. No prior imaging available for comparison. In the setting of a recent trauma, finding is possibly acute. Impression: As above. Dennys Ceja MD 11/17/18 0826 Thank you for allowing us to participate in the care of your patient.
== END 2018-11-17 10:30 | disposition home health service (06) | DRG 563 ==
LOC: VM.MS 14:14
PROVIDERS: ADMIT Family Medicine; ATTEND Family Medicine
DX: S42.292A Other displaced fracture of upper end of left humerus, initial encounter for closed fracture (principal); S52.92XA Unspecified fracture of left forearm, initial encounter for closed fracture; N39.0 Urinary tract infection, site not specified; E11.65 Type 2 diabetes mellitus with hyperglycemia; I10 Essential (primary) hypertension; Z79.82 Long term (current) use of aspirin; Z79.4 Long term (current) use of insulin; Z79.899 Other long term (current) drug therapy; Y92.009 Unspecified place in unspecified non-institutional (private) residence as the place of occurrence of the external cause; Y93.89 Activity, other specified; W19.XXXA Unspecified fall, initial encounter
CPT/HCPCS: 73060-LT; 73110-LT; 82962; 97110-GO; 97116-GP; 97530-GP; A9270-GY; J1815-GY

== ENCOUNTER 2019-07-16 16:28 | Emergency (ER) | payer MEDICARE, BC ==
--- NOTE | 2019-07-16 17:30 | EDM.PDOC ---
ED HPI GENERAL MEDICAL PROBLEM - General Chief Complaint: Lower Extremity Injury/Pain Stated Complaint: LEG HURTING ALL DAY Time Seen by Provider: 07/16/19 16:40 Source of Information: Reports: Patient History Limitations: Reports: No Limitations - History of Present Illness INITIAL COMMENTS - FREE TEXT/NARRATIVE: Pt with pain in posterior LLE Has hx/o blood clot previously in same leg Pain is posterior and began today Pt on Coumadin previously No recent trauma No fever No redness Pain progressed over the day Onset: Today, Gradual Duration: Getting Worse Location: Reports: Lower Extremity, Left Quality: Reports: Ache, Throbbing Severity: Moderate Associated Symptoms: Reports: No Other Symptoms Treatments REHABILITATION SERVICES COUNSELOR: Reports: Aspirin Left Upper Posterior Thigh Pain Score (Numeric/FACES): 10 - Related Data Allergies Allergy/AdvReac Type Severity Reaction Status Date / Time No Known Allergies Allergy Verified 07/16/19 16:38 Home Meds: Home Meds Aspirin [Lo-Dose Aspirin EC] 81 mg PO DAILY 02/17/17 [History] Gabapentin [Neurontin] 300 mg PO TID 02/17/17 [History] Insulin Aspart [Novolog Flexpen] 28 units SQ TIDMEALS 02/17/17 [History] Multivitamin [Multivitamins] 1 tab PO DAILY 02/17/17 [History] Simvastatin [Zocor] 40 mg PO BEDTIME 02/17/17 [History] Insulin Degludec (Tresiba) 33 units SQ DAILY 02/18/17 [History] Lisinopril 20 mg PO DAILY 04/03/18 [History] Famotidine 20 mg PO BID 11/08/18 [History] Furosemide [Lasix] 20 mg PO DAILY 11/08/18 [History] Mupirocin Oint [Bactroban Oint] 1 applic TOP DAILY PRN 11/08/18 [History] Nitrofurantoin Monohyd/M-Cryst [Macrobid 100 mg Capsule] 100 mg PO DAILY [History] Sennosides/Docusate Sodium [Senna-Docusate Sodium Tablet] 2 tab PO DAILY [History] Sulfamethoxazole/Trimethoprim [Sulfamethoxazole-Tmp Ds Tablet] 1 tab PO BID [History] Famotidine [Pepcid] 20 mg PO BID tablet 11/17/18 [Rx] Furosemide [Lasix] 20 mg PO DAILY tablet 11/17/18 [Rx] Gabapentin.300mg 1 each PO TID 11/17/18 [Rx] Hydrocodone/Acet 10/325mg 1 each PO Q6H PRN #18 11/17/18 [Rx] Nitrofurantoin [place]/Macrocryst [Nitrofurantoin [place]-MCR] 100 mg PO DAILY cap [Rx] Novolog Flexpen 0 units SUBCUT TIDMEALS 11/17/18 [Rx] Tolterodine.Er 2mg 1 each PO DAILY #30 11/17/18 [Rx] Tresiba 33 units SUBCUT DAILY 11/17/18 [Rx] Past Medical History HEENT History: Reports: Otitis Media, Sinusitis Cardiovascular History: Reports: Blood Clots/VTE/DVT, High Cholesterol, Hypertension Musculoskeletal History: Reports: Back Pain, Chronic, Osteoarthritis, Other ( See Below) Endocrine/Metabolic History: Reports: Diabetes, Type II Dermatologic History: Reports: Venous Stasis Dermatitis - Infectious Disease History Infectious Disease History: Reports: None - Past Surgical History GI Surgical History: Reports: Appendectomy, Cholecystectomy Female Surgical History: Reports: Hysterectomy Social & Family History - Family History Family Medical History: Noncontributory Respiratory: Reports: None GI: Reports: None Immunologic: Reports: None - Tobacco Use Smoking Status *Q: Never Smoker - Caffeine Use Caffeine Use: Reports: Coffee, Soda Review of Systems - Review of Systems Review Of Systems: See Below Respiratory: Reports: No Symptoms Cardiovascular: Reports: No Symptoms GI/Abdominal: Reports: No Symptoms Musculoskeletal: Reports: Leg Pain ED EXAM, GENERAL - Physical Exam Exam: See Below Extremities: Other (LLE moderately tender with palpation posteriorly Hip and knee with degenerative changes Bilateral lower extremities with 2 + edema No erythema) Course - Vital Signs Last Recorded V/S: Last Vital Signs Temp 98.2 F 07/16/19 16:30 Pulse 71 07/16/19 16:30 Resp 18 07/16/19 16:30 BP 178/70 H 07/16/19 16:30 Pulse Ox 93 L 07/16/19 16:30 - Re-Assessments/Exams Free Text/Narrative Re-Assessment/Exam: 07/16/19 17:27 D/W pt that ultrasound not available at this time to look for DVT Pt at risk as had previous DVT Pt declines transfer at this time for US evaluation Risk of DVT again d/w pt D/W pt that need US for definitive diagnosis and to determine need for anticoagulation and random anticoagulation without definitive diagnosis is risk for bleeding Pt does not desire further evaluation and transfer Departure - Departure Time of Disposition: 17:30 Disposition: Home, Self-Care 01 Clinical Impression: Left leg pain - Discharge Information *PRESCRIPTION DRUG MONITORING PROGRAM REVIEWED*: Not Applicable *COPY OF PRESCRIPTION DRUG MONITORING REPORT IN PATIENT [facility]MU[facility]: Not Applicable Instructions: Musculoskeletal Pain Referrals: Kirstie Buck NP [Primary Care Provider] - Additional Instructions: Follow up in ER if worse Follow up in clinic to arrange ultrasound evaluation Sepsis Event Note - Evaluation Sepsis Screening Result: No Definite Risk - Focused Exam Vital Signs: Vital Signs Temp Pulse Resp BP Pulse Ox 07/16/19 16:30 98.2 F 71 18 178/70 H 93 L Date Exam was Performed: 07/16/19 Time Exam was Performed: 17:23
== END 2019-07-16 17:37 | disposition home or self-care (01) ==
LOC: VM.ED 16:28
DX: M79.605 Pain in left leg (principal); E11.9 Type 2 diabetes mellitus without complications; E78.00 Pure hypercholesterolemia, unspecified; I10 Essential (primary) hypertension; M19.90 Unspecified osteoarthritis, unspecified site; Z79.82 Long term (current) use of aspirin; Z79.4 Long term (current) use of insulin; Z79.899 Other long term (current) drug therapy; Z79.01 Long term (current) use of anticoagulants
CPT/HCPCS: 99283; 99283-GF

== ENCOUNTER 2019-08-10 20:07 | Emergency (ER) | payer MEDICARE, BC ==
[2019-08-10] MEDS ORDERED: Sodium Chloride 0.9% 10 ML Syringe FLUSH PRN (20:12)
--- NOTE | 2019-08-10 20:28 | EDM.PDOC ---
ED HPI GENERAL MEDICAL PROBLEM - General Time Seen by Provider: 08/10/19 20:07 Source of Information: Reports: Patient, EMS History Limitations: Reports: No Limitations - History of Present Illness INITIAL COMMENTS - FREE TEXT/NARRATIVE: Pt. presents to ER with complaints of weakness, elevated blood sugar, chills, and fever. She was hospitalized with what was thought to be cellulitis to her R foot. She was initially treated with IV vanco and zosyn. She had a CT of the foot and was found to have a lisfrac fracture to the foot which was surgically repaired. Pt. was discharged from [facility] on 08/02. She was sent home on keflex. Blood cultures and procalcitonin in [place] were negative during her stay. At this point, I have been unable to seen how long she was on IV Zosyn and vanco. She was seen by podiatry on follow-up yesterday, and according to her clinic notes, the incision was without erythema or signs of infection. Pt. states that she has not really been feeling well since discharge. Appetite has been poor. She states that she developed the above symptoms this evening. Pt. states that her blood sugar was greater than 300 today. She was given extra insulin for this. Pt. also reports dysuria, frequency, and low back pain. Pt. does have a history of frequent UTIs and perviously has been septic secondary to pyelonephritis. She has not been experiencing any cough or chest congestion. No sore throat or sinus congestion. No chest, jaw, arm, neck or upper back pain. She was screened for covid 5 days ago and this was negative. She was so weak tonight that she called 911 as she was unable to stand on her own. Pt. states that she has not examined her incision today. Onset: Today Onset Date: 08/10/19 Location: Reports: Lower Extremity, Left, Generalized Improves with: Reports: Rest Worsens with: Reports: Movement Associated Symptoms: Reports: Fever/Chills, Malaise, Nausea/Vomiting. Denies: Chest Pain, Cough, cough w sputum, Diaphoresis, Rash, Shortness of Breath, Syncope - Related Data Allergies Allergy/AdvReac Type Severity Reaction Status Date / Time No Known Allergies Allergy Verified 07/16/19 16:38 Home Meds: Home Meds Aspirin [Lo-Dose Aspirin EC] 81 mg PO DAILY 02/17/17 [History] Gabapentin [Neurontin] 300 mg PO TID 02/17/17 [History] Insulin Aspart [Novolog Flexpen] 28 units SQ TIDMEALS 02/17/17 [History] Multivitamin [Multivitamins] 1 tab PO DAILY 02/17/17 [History] Simvastatin [Zocor] 40 mg PO BEDTIME 02/17/17 [History] Insulin Degludec (Tresiba) 33 units SQ DAILY 02/18/17 [History] Lisinopril 20 mg PO DAILY 04/03/18 [History] Famotidine 20 mg PO BID 11/08/18 [History] Furosemide [Lasix] 20 mg PO DAILY 11/08/18 [History] Mupirocin Oint [Bactroban Oint] 1 applic TOP DAILY PRN 11/08/18 [History] Nitrofurantoin Monohyd/M-Cryst [Macrobid 100 mg Capsule] 100 mg PO DAILY [History] Sennosides/Docusate Sodium [Senna-Docusate Sodium Tablet] 2 tab PO DAILY [History] Sulfamethoxazole/Trimethoprim [Sulfamethoxazole-Tmp Ds Tablet] 1 tab PO BID [History] Famotidine [Pepcid] 20 mg PO BID tablet 11/17/18 [Rx] Furosemide [Lasix] 20 mg PO DAILY tablet 11/17/18 [Rx] Gabapentin.300mg 1 each PO TID 11/17/18 [Rx] Hydrocodone/Acet 10/325mg 1 each PO Q6H PRN #18 11/17/18 [Rx] Nitrofurantoin [place]/Macrocryst [Nitrofurantoin [place]-MCR] 100 mg PO DAILY cap [Rx] Novolog Flexpen 0 units SUBCUT TIDMEALS 11/17/18 [Rx] Tolterodine.Er 2mg 1 each PO DAILY #30 11/17/18 [Rx] Tresiba 33 units SUBCUT DAILY 11/17/18 [Rx] Past Medical History HEENT History: Reports: Otitis Media, Sinusitis Cardiovascular History: Reports: Blood Clots/VTE/DVT, High Cholesterol, Hypertension Musculoskeletal History: Reports: Back Pain, Chronic, Osteoarthritis, Other ( See Below) Endocrine/Metabolic History: Reports: Diabetes, Type II Dermatologic History: Reports: Venous Stasis Dermatitis - Infectious Disease History Infectious Disease History: Reports: None - Past Surgical History GI Surgical History: Reports: Appendectomy, Cholecystectomy Female Surgical History: Reports: Hysterectomy Social & Family History - Family History Family Medical History: Noncontributory Respiratory: Reports: None GI: Reports: None Immunologic: Reports: None - Caffeine Use Caffeine Use: Reports: Coffee, Soda ED ROS GENERAL - Review of Systems Review Of Systems: See Below Constitutional: Reports: Fever, Chills, Malaise, Fatigue HEENT: Reports: No Symptoms Respiratory: Reports: No Symptoms Cardiovascular: Reports: No Symptoms Endocrine: Reports: No Symptoms GI/Abdominal: Reports: Nausea, Vomiting : Reports: Dysuria, Frequency, Pain Musculoskeletal: Reports: Leg Pain, Joint Pain, Joint Swelling Skin: Reports: No Symptoms Neurological: Reports: No Symptoms Psychiatric: Reports: No Symptoms Hematologic/Lymphatic: Reports: No Symptoms Immunologic: Reports: No Symptoms ED EXAM, GENERAL - Physical Exam Exam: See Below Exam Limited By: No Limitations General Appearance: Alert, WD/WN, No Apparent Distress Eye Exam: Bilateral Eye: EOMI, PERRL Nose: Normal Inspection, Normal Mucosa, No Blood Throat/Mouth: Normal Inspection, Normal Lips, Normal Teeth, Normal Voice, No Airway Compromise Head: Atraumatic, Normocephalic Neck: Normal Inspection, Supple, Non-Tender, Full Range of Motion Respiratory/Chest: No Respiratory Distress, Lungs Clear, Normal Breath Sounds, No Accessory Muscle Use, Chest Non-Tender Cardiovascular: Normal Peripheral Pulses, Regular Rate, Rhythm, No Edema, No Gallop, No JVD, No Rub GI/Abdominal: Normal Bowel Sounds, Soft, Non-Tender, No Mass (Female) Exam: Deferred Rectal (Female) Exam: Deferred Back Exam: Normal Inspection, Full Range of Motion Extremities: Other (Post surgical changes. Wires present. Swelling and some purulent discharge noted which was cultured) Neurological: Alert, Oriented, CN II-XII Intact, Normal Cognition, Normal Gait, Normal Reflexes, No Motor/Sensory Deficits EKG INTERPRETATION Rhythm: NSR QRS: RBBB Course - Orders/Labs/Meds Orders: Active Orders 24 hr Category Date Time Status EKG Documentation Completion [RC] STAT Care 08/10/19 20:13 Active Chest 1V Frontal [CR] Stat Exams 08/10/19 20:13 Taken CULTURE BLOOD [BC] Stat Lab 08/10/19 20:39 Received CULTURE BLOOD [BC] Stat Lab 08/10/19 20:46 Received CULTURE WOUND [RM] Stat Lab 08/10/19 20:53 Received Sodium Chloride 0.9% [Normal Saline] 1,000 ml Med 08/10/19 22:00 Active IV ASDIRECTED Sodium Chloride 0.9% [Saline Flush] Med 08/10/19 20:12 Active 10 ml FLUSH ASDIRECTED PRN Vancomycin 1 gm Med 08/10/19 21:46 Active Sodium Chloride 0.9% [Normal Saline (AdvBag)] 250 ml IV STAT Blood Culture x2 Reflex Set [OM.PC] Stat Oth 08/10/19 20:13 Ordered Peripheral IV Insertion Adult [OM.PC] Routine Oth 08/10/19 20:13 Ordered Medication Orders Vancomycin HCl 1 gm/ Sodium (Chloride) 250 mls @ 250 mls/hr IV STAT ONE Stop: 08/10/19 22:45 Sodium Chloride (Normal Saline) 1,000 mls @ 125 mls/hr IV ASDIRECTED PRICE Sodium Chloride (Saline Flush) 10 ml FLUSH ASDIRECTED PRN PRN Reason: Keep Vein Open Labs: Laboratory Tests 08/10/19 08/10/19 08/10/19 Range/Units 20:23 20:26 20:39 WBC 9.2 (4.0-10.0) x10^3/uL RBC 3.89 L (4.00-5.50) x10^6/uL Hgb 11.3 L (12.0-16.0) g/dL Hct 34.8 (33.0-47.0) % MCV 89.5 D (78.0-93.0) fL MCH 29.0 (26.0-32.0) pg MCHC 32.5 (32.0-36.0) g/dL RDW Coeff of Gopal 14.3 (10.0-15.0) % Plt Count 365 D (130-400) x10^3/uL Neut % (Auto) 83.4 H (50.0-80.0) % Lymph % (Auto) 10.7 L (25.0-50.0) % [place] % (Auto) 5.4 (2.0-11.0) % Eos % (Auto) 0.3 (0.0-4.0) % Baso % (Auto) 0.2 (0.2-1.2) % PT (9.5-12.3) SEC INR (2.0-3.5) Sodium (136-145) mmol/L Potassium (3.5-5.1) mmol/L Chloride (98-107) mmol/L Carbon Dioxide (21-32) mmol/L Anion Gap (10-20) mmol/L BUN (7-18) mg/dL Creatinine (0.55-1.02) mg/dL Est Cr Clr Drug Dosing Estimated GFR (MDRD) Glucose (74-106) mg/dL Lactic Acid (0.4-2.0) mmol/L Calcium (8.5-10.1) mg/dL Corrected Calcium (8.5-10.1) mg/dL Magnesium (1.8-2.4) mg/dL Total Bilirubin (0.2-1.0) mg/dL AST (15-37) U/L ALT (14-59) U/L Alkaline Phosphatase (46-116) U/L Troponin I (<=0.056) ng/mL C-Reactive Protein (<=0.9) mg/dL NT-Pro-B Natriuret Pep (<=450) pg/mL Total Protein (6.4-8.2) g/dL Albumin (3.4-5.0) g/dL Globulin Albumin/Globulin Ratio Urine Color Yellow (YELLOW) Urine Appearance Slightly cloudy H (CLEAR) Urine pH 6.0 (5.0-8.0) Ur Specific [place] >=1.030 Urine Protein 100 H (NEGATIVE) mg/dL Urine Glucose (UA) 500 H (NEGATIVE) mg/dL Urine Ketones Negative (NEGATIVE) mg/dL Urine Occult Blood Moderate H (NEGATIVE) Urine Nitrite Negative (NEGATIVE) Urine Bilirubin Negative (NEGATIVE) Urine Urobilinogen 1.0 (0.2) EU/dL Ur Leukocyte Esterase Negative (NEGATIVE) U Hyaline Cast (Auto) Few Urine RBC 10-20 H (NOT SEEN) /HPF Urine WBC 0-5 (NOT SEEN) /HPF Ur Squamous Epith Cells Few H (NEGATIVE) /HPF Urine Bacteria Rare (NEGATIVE) /HPF Urine Mucus Occasional H (NEGATIVE) /LPF SARS-CoV-2 RNA (RT-PCR) Negative (NEGATIVE) 08/10/19 08/10/19 08/10/19 Range/Units 20:39 20:39 20:39 WBC (4.0-10.0) x10^3/uL RBC (4.00-5.50) x10^6/uL Hgb (12.0-16.0) g/dL Hct (33.0-47.0) % MCV (78.0-93.0) fL MCH (26.0-32.0) pg MCHC (32.0-36.0) g/dL RDW Coeff of Gopal (10.0-15.0) % Plt Count (130-400) x10^3/uL Neut % (Auto) (50.0-80.0) % Lymph % (Auto) (25.0-50.0) % [place] % (Auto) (2.0-11.0) % Eos % (Auto) (0.0-4.0) % Baso % (Auto) (0.2-1.2) % PT 10.5 (9.5-12.3) SEC INR 1.0 L (2.0-3.5) Sodium 135 L (136-145) mmol/L Potassium 4.0 (3.5-5.1) mmol/L Chloride 99 (98-107) mmol/L Carbon Dioxide 25 (21-32) mmol/L Anion Gap 15.0 (10-20) mmol/L BUN 13 (7-18) mg/dL Creatinine 1.0 (0.55-1.02) mg/dL Est Cr Clr Drug Dosing TNP Estimated GFR (MDRD) 53 Glucose 235 H (74-106) mg/dL Lactic Acid 2.6 H* (0.4-2.0) mmol/L Calcium 8.8 (8.5-10.1) mg/dL Corrected Calcium 10.16 H (8.5-10.1) mg/dL Magnesium 1.6 L (1.8-2.4) mg/dL Total Bilirubin 0.8 (0.2-1.0) mg/dL AST 28 (15-37) U/L ALT 24 (14-59) U/L Alkaline Phosphatase 128 H (46-116) U/L Troponin I < 0.017 (<=0.056) ng/mL C-Reactive Protein 19.8 H (<=0.9) mg/dL NT-Pro-B Natriuret Pep 239 (<=450) pg/mL Total Protein 6.9 (6.4-8.2) g/dL Albumin 2.3 L (3.4-5.0) g/dL Globulin 4.6 Albumin/Globulin Ratio 0.50 Urine Color (YELLOW) Urine Appearance (CLEAR) Urine pH (5.0-8.0) Ur Specific [place] Urine Protein (NEGATIVE) mg/dL Urine Glucose (UA) (NEGATIVE) mg/dL Urine Ketones (NEGATIVE) mg/dL Urine Occult Blood (NEGATIVE) Urine Nitrite (NEGATIVE) Urine Bilirubin (NEGATIVE) Urine Urobilinogen (0.2) EU/dL Ur Leukocyte Esterase (NEGATIVE) U Hyaline Cast (Auto) Urine RBC (NOT SEEN) /HPF Urine WBC (NOT SEEN) /HPF Ur Squamous Epith Cells (NEGATIVE) /HPF Urine Bacteria (NEGATIVE) /HPF Urine Mucus (NEGATIVE) /LPF SARS-CoV-2 RNA (RT-PCR) (NEGATIVE) Meds: Medications Generic Name Dose Route Start Last Admin Trade Name Freq PRN Reason Stop Dose Admin Vancomycin HCl 1 gm/ Sodium 250 mls @ 250 mls/hr 08/10/19 21:46 Chloride IV 08/10/19 22:45 STAT ONE Sodium Chloride 1,000 mls @ 125 mls/hr 08/10/19 22:00 Normal Saline IV ASDIRECTED PRICE Sodium Chloride 10 ml 08/10/19 20:12 Saline Flush FLUSH ASDIRECTED PRN Keep Vein Open Discontinued Medications Generic Name Dose Route Start Last Admin Trade Name Freq PRN Reason Stop Dose Admin Piperacillin Sod/Tazobactam 100 mls @ 200 mls/hr 08/10/19 21:02 08/10/19 21: 09 Sod 4.5 gm/ Sodium Chloride IV 08/10/19 21:31 200 mls/hr STAT ONE Administration Ondansetron HCl 4 mg 08/10/19 20:15 08/10/19 21:04 Zofran IVPUSH 08/10/19 20:16 4 mg ONETIME ONE Administration - Radiology Interpretation Free Text/Narrative:: No obvious infiltrate noted. Departure - Departure Time of Disposition: 21:48 Disposition: DC/Tfer to Acute Hospital 02 Clinical Impression: Post op infection, Sepsis - Discharge Information Referrals: Kirstie Buck NP [Primary Care Provider] - Forms: Interfacility Transfer EMTALA Sepsis Event Note - Focused Exam Date Exam was Performed: 08/10/19 Time Exam was Performed: 21:48 - Problem List Review Problem List Initiated/Reviewed/Updated: Yes - My Orders Last 24 Hours: My Active Orders 08/10/19 20:12 Sodium Chloride 0.9% [Saline Flush] 10 ml FLUSH ASDIRECTED PRN 08/10/19 20:13 EKG Documentation Completion [RC] STAT Chest 1V Frontal [CR] Stat Blood Culture x2 Reflex Set [OM.PC] Stat Peripheral IV Insertion Adult [OM.PC] Routine 08/10/19 20:39 CULTURE BLOOD [BC] Stat 08/10/19 20:46 CULTURE BLOOD [BC] Stat 08/10/19 20:53 CULTURE WOUND [RM] Stat 08/10/19 21:46 Vancomycin 1 gm Sodium Chloride 0.9% [Normal Saline (AdvBag)] 250 ml IV STAT 08/10/19 22:00 Sodium Chloride 0.9% [Normal Saline] 1,000 ml IV ASDIRECTED - Assessment/Plan Last 24 Hours: My Active Orders 08/10/19 20:12 Sodium Chloride 0.9% [Saline Flush] 10 ml FLUSH ASDIRECTED PRN 08/10/19 20:13 EKG Documentation Completion [RC] STAT Chest 1V Frontal [CR] Stat Blood Culture x2 Reflex Set [OM.PC] Stat Peripheral IV Insertion Adult [OM.PC] Routine 08/10/19 20:39 CULTURE BLOOD [BC] Stat 08/10/19 20:46 CULTURE BLOOD [BC] Stat 08/10/19 20:53 CULTURE WOUND [RM] Stat 08/10/19 21:46 Vancomycin 1 gm Sodium Chloride 0.9% [Normal Saline (AdvBag)] 250 ml IV STAT 08/10/19 22:00 Sodium Chloride 0.9% [Normal Saline] 1,000 ml IV ASDIRECTED Plan: Pt. transferred to [facility]. Dr. Gonzales is accepting. She will be transported via [facility] ground ambulance. She was started on IV zosyn 4.5gm IV and vancomycin 1gm IV. At this point, infectious process appears to be secondary to the L foot. It is edematous and there is some purulent discharge. This was cultured. Dressing changed. UA was negative. No obvious infiltrate noted to chest x-ray. Did review the EKG with Dr. Carter at [facility] who feels there is no acute AK and that it is unchanged from previous. Pt. will be transported to [facility] in [place]. All questions were answered.
[2019-08-10] MEDS: Ondansetron 4 MG/2 ML SDV IVPUSH ONE (21:04)
[2019-08-10] MEDS: Piperacillin/Tazobactam 4.5 GM in Sodium Chloride 0.9% 100 ML IV ONE (21:09)
[2019-08-10 21:15] LABS: CHLORIDE,CL 99 mmol/L (98-107); SODIUM,NA 135 mmol/L (136-145)
[2019-08-10] MEDS: Sodium Chloride 0.9% 1,000 ML IV SCH (21:58)
[2019-08-10] MEDS: Acetaminophen 500 MG Tab PO ONE (22:12)
--- NOTE | 2019-08-11 10:07 | CR ---
[id number] RAD/RAD Chest PA or AP 1V EXAM: RAD Chest PA or AP 1V INDICATION: FEVER, WEAKNESS COMPARISON: 04/03/2018. DISCUSSION: Cardiomediastinal silhouette is stable in size and contour. No infiltrate, effusion, pneumothorax, or edema. Low lung volumes associated vascular crowding. Old healed rib fractures. IMPRESSION: No acute cardiopulmonary abnormality. Rylan Raphael DO 08/11/19 1006 Thank you for allowing us to participate in the care of your patient.
== END 2019-08-10 22:27 | disposition short-term general hospital (02) ==
LOC: VM.ED 20:07
DX: A41.9 Sepsis, unspecified organism (principal); T81.40XA Infection following a procedure, unspecified, initial encounter; E78.00 Pure hypercholesterolemia, unspecified; I10 Essential (primary) hypertension; M19.90 Unspecified osteoarthritis, unspecified site; E11.9 Type 2 diabetes mellitus without complications; Z79.82 Long term (current) use of aspirin; Z79.4 Long term (current) use of insulin; Z79.899 Other long term (current) drug therapy
CPT/HCPCS: 71045; 80053; 81001; 83605; 83735; 83880; 84484; 85025; 85610; 86140; 87040; 87070; 87077; 87186; 93005; 93010; 96365; 96367; 96375; 99284-GF; 99285-25; A9270-GY; J2405; J2543; J3370; J7030; J7050; U0002

== ENCOUNTER 2023-10-30 16:33 | Observation (INO) | payer MEDICARE, BC ==
[2023-10-30 17:45] LABS: BASOPHILS PERCENT AUTO 0.3 % (0.2-1.2); EOSINOPHILS ABSOLUTE AUTO 0.2 x10^3/uL (0.0-0.5); EOSINOPHILS PERCENT AUTO 2.7 % (0.0-4.0); HEMATOCRIT 43.2 % (33.0-47.0); IMMATURE GRAN ABSOLUTE AUTO 0.03 x10^3/uL (0.00-0.07); LYMPHOCYTES PERCENT AUTO 13.8 % (25.0-50.0); MEAN CORPUSCULAR HEMOGLOBIN 29.5 pg (26.0-32.0); MEAN CORPUSCULAR HGB CONC 32.4 g/dL (32.0-36.0); MEAN CORPUSCULAR VOLUME 91.1 fL (78.0-93.0); MONOCYTES ABSOLUTE AUTO 0.7 x10^3/uL (0.0-0.8); MONOCYTES PERCENT AUTO 9.4 % (2.0-11.0); NEUTROPHILS ABSOLUTE AUTO 5.2 x10^3/uL (1.8-7.7); NEUTROPHILS PERCENT AUTO 73.4 % (50.0-80.0); PLATELET COUNT,PLT 167 x10^3/uL (130-400); RED BLOOD CELL COUNT 4.74 x10^6/uL (4.00-5.50); WHITE BLOOD CELL COUNT,WBC 7.1 x10^3/uL (4.0-10.0)
[2023-10-30 18:11] LABS: A/G RATIO 0.73; ALBUMIN 2.7 g/dL (3.4-5.0); ANION GAP 10.9 mmol/L (5-15); BILIRUBIN TOTAL 0.6 mg/dL (0.2-1.0); C-REACTIVE PROTEIN 1.83 mg/dL (<=0.50); CREATININE 1.1 mg/dL (0.55-1.02); EST CRCL DRUG DOSING (CG) 35.04 mL/min; POTASSIUM,K 3.9 mmol/L (3.5-5.1); PROTEIN TOTAL,TP 6.4 g/dL (6.4-8.2)
[2023-10-30] MEDS: Acetaminophen 325 MG Tab PO PRN (21:40)
[2023-10-30] MEDS: Gabapentin 300 MG Cap PO SCH (21:40)
[2023-10-30] MEDS: Cephalexin 250 MG Cap PO SCH (21:40)
[2023-10-30] MEDS: Triamcinolone Acetonide 0.1% Crm 15 GM Tube TOP SCH (21:41)
[2023-10-30] MEDS: NOVOLOG SUBCUT SCH (21:42)
[2023-10-30] MEDS: NOVOLOG SUBCUT ONE (21:48)
[2023-10-31] MEDS: Losartan 50 MG Tab PO SCH (08:17)
[2023-10-31] MEDS: Furosemide 20 MG Tab PO SCH (08:17)
[2023-10-31] MEDS: Aspirin 81 MG Tab.EC PO SCH (08:17)
[2023-10-31] MEDS: Multivitamin Tab PO SCH (08:17)
[2023-10-31] MEDS: amLODIPine 10 MG Tab PO SCH (08:18)
[2023-10-31] MEDS: UREA TOP SCH (10:33)
[2023-10-31] MEDS: TRIAMCINOLONE ACETONIDE 0.1% TOP SCH (12:22)
[2023-10-31] MEDS ORDERED: atorvaSTATin 10 MG Tab PO SCH (21:00)
== END 2023-10-31 15:32 | disposition home or self-care (01) ==
LOC: VM.ED 16:33 → SUPCPDRO 16:33 → VM.MS 18:36 → INTOOBSV 18:36
PROVIDERS: ADMIT Nurse Practitioner Family; ATTEND Nurse Practitioner Family
DX: R29.898 Other symptoms and signs involving the musculoskeletal system (principal); I10 Essential (primary) hypertension; E11.9 Type 2 diabetes mellitus without complications; E66.9 Obesity, unspecified; E78.00 Pure hypercholesterolemia, unspecified; Z79.4 Long term (current) use of insulin; Z79.82 Long term (current) use of aspirin; Z79.899 Other long term (current) drug therapy
CPT/HCPCS: 36415; 80053; 82947; 85025; 86140; 97161; 97165; 97535; 99285; A9270; G0378; 99223; 99239

== ENCOUNTER 2024-07-04 17:06 | Inpatient (IN) | payer MEDICARE, BC ==
[2024-07-04] MEDS: fentaNYL 50 MCG/ML SDV IVPUSH ONE ×2 (18:40→20:51)
[2024-07-04] MEDS ORDERED: Ondansetron 4 MG/2 ML SDV IV PRN (22:11)
[2024-07-04] MEDS ORDERED: Acetaminophen 325 MG Tab PO PRN (22:11)
[2024-07-04] MEDS ORDERED: Melatonin 3 MG Tab PO PRN (22:11)
[2024-07-04] MEDS ORDERED: Sennosides/Docusate Sodium 50-8.6 MG Tab PO PRN (22:11)
[2024-07-04] MEDS: Nystatin Crm 30 GM Tube TOP SCH (23:07)
[2024-07-05] MEDS: Acetaminophen/HYDROcodone 325-5 MG Tab PO PRN (01:55)
[2024-07-05 04:25] LABS: BASOPHILS PERCENT AUTO 0.2 % (0.2-1.2); EOSINOPHILS PERCENT AUTO 0.5 % (0.0-4.0); HEMATOCRIT 37.5 % (33.0-47.0); HEMOGLOBIN 12.1 g/dL (12.0-16.0); IMMATURE GRAN ABSOLUTE AUTO 0.01 x10^3/uL (0.00-0.07); LYMPHOCYTES ABSOLUTE AUTO 0.8 x10^3/uL (1.0-4.8); LYMPHOCYTES PERCENT AUTO 13.5 % (25.0-50.0); MEAN CORPUSCULAR HEMOGLOBIN 29.4 pg (26.0-32.0); MEAN CORPUSCULAR HGB CONC 32.3 g/dL (32.0-36.0); MEAN CORPUSCULAR VOLUME 91.2 fL (78.0-93.0); MONOCYTES ABSOLUTE AUTO 0.5 x10^3/uL (0.0-0.8); MONOCYTES PERCENT AUTO 8.3 % (2.0-11.0); NEUTROPHILS ABSOLUTE AUTO 4.3 x10^3/uL (1.8-7.7); NEUTROPHILS PERCENT AUTO 77.3 % (50.0-80.0); PLATELET COUNT,PLT 170 x10^3/uL (130-400); RED BLOOD CELL COUNT 4.11 x10^6/uL (4.00-5.50); WHITE BLOOD CELL COUNT,WBC 5.6 x10^3/uL (4.0-10.0)
[2024-07-05 04:28] LABS: CALCIUM 8.6 mg/dL (8.5-10.1); CREATININE 1.1 mg/dL (0.55-1.02); EST CRCL DRUG DOSING (CG) 31.81 mL/min; POTASSIUM,K 4.7 mmol/L (3.5-5.1)
[2024-07-05 04:31] LABS: ANION GAP 10.7 mmol/L (5-15)
[2024-07-05] MEDS: Insulin Regular, Human 100 Units/ML 10 ML Vial SUBCUT SCH (06:55)
[2024-07-05] MEDS: Morphine 2 MG/ML SYRINGE IVPUSH PRN (07:00)
[2024-07-05] MEDS: Rosuvastatin 20 MG Tab PO SCH (10:03)
[2024-07-05] MEDS: Loratadine 10 MG Tab PO SCH (10:03)
[2024-07-05] MEDS: Lisinopril 20 MG Tab PO SCH (10:04)
[2024-07-05] MEDS: Furosemide 20 MG Tab PO SCH (10:04)
[2024-07-05] MEDS: amLODIPine 10 MG Tab PO SCH (10:05)
[2024-07-05] MEDS: Insulin Glarg,Human.Rec.Analog 100 Unit/ML 10 ML Vial SUBCUT SCH (10:11)
[2024-07-05] MEDS ORDERED: Gabapentin 300 MG Cap PO SCH (22:22)
== END 2024-07-05 17:50 | disposition short-term general hospital (02) | DRG 534 ==
LOC: VM.ED 17:06 → VM.MS 19:58 → OBSVTOIN 22:12
PROVIDERS: ADMIT Family Medicine; ATTEND Family Medicine
DX: S72.411A Displaced unspecified condyle fracture of lower end of right femur, initial encounter for closed fracture (principal); W18.39XA Other fall on same level, initial encounter; S72.491A Other fracture of lower end of right femur, initial encounter for closed fracture; G89.29 Other chronic pain; I10 Essential (primary) hypertension; E78.00 Pure hypercholesterolemia, unspecified; F15.90 Other stimulant use, unspecified, uncomplicated; E11.42 Type 2 diabetes mellitus with diabetic polyneuropathy; M19.90 Unspecified osteoarthritis, unspecified site; S81.801A Unspecified open wound, right lower leg, initial encounter; L89.152 Pressure ulcer of sacral region, stage 2; Y93.89 Activity, other specified; Y92.009 Unspecified place in unspecified non-institutional (private) residence as the place of occurrence of the external cause; Z86.718 Personal history of other venous thrombosis and embolism; Z87.440 Personal history of urinary (tract) infections; E11.9 Type 2 diabetes mellitus without complications; Z90.49 Acquired absence of other specified parts of digestive tract; Z90.710 Acquired absence of both cervix and uterus; Z79.02 Long term (current) use of antithrombotics/antiplatelets; Z79.82 Long term (current) use of aspirin; Z79.899 Other long term (current) drug therapy; Z79.01 Long term (current) use of anticoagulants; W19.XXXA Unspecified fall, initial encounter; Y92.019 Unspecified place in single-family (private) house as the place of occurrence of the external cause
CPT/HCPCS: 36415; 73560-RT; 80048; 82947; 85025; 96374; 96376; 99223; 99223-GT; 99239; 99239-GT; 99284; 99285-25; A9270-GY; G0378; J1815-GY; J2270; J3010

== ENCOUNTER 2024-07-26 10:51 | Inpatient (IN) | payer MEDICARE, BC ==
[2024-07-26] MEDS: Acetaminophen 500 MG Tab PO ONE (16:09)
[2024-07-26] MEDS ORDERED: Ondansetron 4 MG/2 ML SDV IV PRN (17:15)
[2024-07-26] MEDS ORDERED: HYDROmorphone 0.5 MG/0.5 ML Syringe IVPUSH PRN (17:15)
[2024-07-26] MEDS ORDERED: Polyethylene Glycol 3350 Powder 17 GM Packet PO PRN (17:15)
[2024-07-26] MEDS ORDERED: Ondansetron 4 MG Tab.DIS PO PRN (17:15)
[2024-07-26] MEDS ORDERED: Naloxone 0.4 MG/ML SDV IVPUSH PRN (17:15)
[2024-07-26] MEDS: oxyCODONE 5 MG Tab PO PRN (17:33)
[2024-07-26 17:45] LABS: BASOPHILS PERCENT AUTO 0.4 % (0.2-1.2); EOSINOPHILS ABSOLUTE AUTO 0.1 x10^3/uL (0.0-0.5); EOSINOPHILS PERCENT AUTO 1.6 % (0.0-4.0); HEMATOCRIT 33.2 % (33.0-47.0); HEMOGLOBIN 10.2 g/dL (12.0-16.0); IMMATURE GRAN ABSOLUTE AUTO 0.02 x10^3/uL (0.00-0.07); LYMPHOCYTES ABSOLUTE AUTO 0.9 x10^3/uL (1.0-4.8); LYMPHOCYTES PERCENT AUTO 11.4 % (25.0-50.0); MEAN CORPUSCULAR HEMOGLOBIN 29.3 pg (26.0-32.0); MEAN CORPUSCULAR HGB CONC 30.7 g/dL (32.0-36.0); MEAN CORPUSCULAR VOLUME 95.4 fL (78.0-93.0); MONOCYTES ABSOLUTE AUTO 0.5 x10^3/uL (0.0-0.8); MONOCYTES PERCENT AUTO 6.3 % (2.0-11.0); NEUTROPHILS ABSOLUTE AUTO 6.5 x10^3/uL (1.8-7.7); NEUTROPHILS PERCENT AUTO 80.1 % (50.0-80.0); PLATELET COUNT,PLT 353 x10^3/uL (130-400); RED BLOOD CELL COUNT 3.48 x10^6/uL (4.00-5.50); WHITE BLOOD CELL COUNT,WBC 8.2 x10^3/uL (4.0-10.0)
[2024-07-26] MEDS ORDERED: HYDROCORTISONE 2.5% PRN (17:49)
[2024-07-26] MEDS ORDERED: 50% Dextrose in Water 50 ML Syringe IVPUSH PRN ×2 (17:49→18:26)
[2024-07-26] MEDS ORDERED: Glucagon,Human Recombinant 1 MG Vial IM PRN ×2 (17:49→18:26)
[2024-07-26 17:54] LABS: ANION GAP 9.2 mmol/L (5-15); CALCIUM 8.8 mg/dL (8.5-10.1); EST CRCL DRUG DOSING (CG) 37.81 mL/min; POTASSIUM,K 4.2 mmol/L (3.5-5.1)
[2024-07-26] MEDS: Enoxaparin 40 MG/0.4 ML Syringe SUBCUT SCH (20:16)
[2024-07-26] MEDS: ceFAZolin 2 GM Vial IVPUSH SCH (20:16)
[2024-07-26] MEDS: Melatonin 3 MG Tab PO SCH (20:16)
[2024-07-26] MEDS: Famotidine 20 MG Tab PO SCH (20:16)
[2024-07-26] MEDS: MICONAZOLE 2% TOP SCH (20:35)
[2024-07-26] MEDS: DICLOFENAC SODIUM 1% TOP SCH (20:35)
[2024-07-27] MEDS: Furosemide 20 MG Tab PO SCH (08:16)
[2024-07-27] MEDS: Rosuvastatin 20 MG Tab PO SCH (08:16)
[2024-07-27] MEDS: Loratadine 10 MG Tab PO SCH (08:16)
[2024-07-27] MEDS: Cholecalciferol (Vitamin D3) 25 MCG Tab PO SCH (08:16)
[2024-07-27] MEDS: Insulin Glarg,Human.Rec.Analog 100 Unit/ML 10 ML Vial SUBCUT SCH (08:17)
[2024-07-27] MEDS: traMADol 50 MG Tab PO PRN (08:27)
[2024-07-27] MEDS: amLODIPine 10 MG Tab PO SCH (08:34)
[2024-07-27] MEDS: Insulin Lispro 100 Units/ML 3 ML Vial SUBCUT SCH ×3 (09:26→18:40)
[2024-07-27] MEDS: Clobetasol 0.05% Crm 30 GM Tube TOP SCH (13:41)
[2024-07-27] MEDS: traMADol 50 MG Tab PO ONE (15:23)
[2024-07-28] MEDS: traMADol 50 MG Tab PO PRN (04:52)
[2024-07-28] MEDS: Sodium Chloride 0.9% 10 ML Syringe FLUSH PRN (12:25)
[2024-07-29] MEDS: Insulin Lispro 100 Units/ML 3 ML Vial SUBCUT SCH (08:30)
[2024-07-30] MEDS: Acetaminophen 325 MG Tab PO PRN (08:17)
[2024-08-02] MEDS: Sodium Phosphate,Monobasic/Sodium Phosphate,Dibasic Enema 133 ML Bottle RECTAL ONE (14:20)
[2024-08-02] MEDS: Polyethylene Glycol 3350 Powder 17 GM Packet PO SCH (20:05)
[2024-08-07] MEDS: MICONAZOLE 2% TOP SCH (10:28)
[2024-08-10] MEDS: Clobetasol 0.05% Crm 30 GM Tube TOP SCH (20:39)
[2024-08-11] MEDS: Vitamins A and D Oint 113 GM Tube TOP PRN (08:47)
[2024-08-16] MEDS: Losartan 50 MG Tab PO SCH (11:00)
[2024-08-16 11:11] LABS: CALCIUM 9.4 mg/dL (8.5-10.1); CREATININE 1.1 mg/dL (0.55-1.02); EST CRCL DRUG DOSING (CG) 34.38 mL/min; POTASSIUM,K 4.5 mmol/L (3.5-5.1)
[2024-08-16 11:12] LABS: ANION GAP 9.5 mmol/L (5-15)
[2024-08-20 07:15] LABS: CALCIUM 9.1 mg/dL (8.5-10.1); CREATININE 0.9 mg/dL (0.55-1.02); EST CRCL DRUG DOSING (CG) 42.02 mL/min; POTASSIUM,K 4.4 mmol/L (3.5-5.1)
[2024-08-20 07:18] LABS: ANION GAP 8.4 mmol/L (5-15)
== END 2024-08-28 16:20 | disposition home health service (06) | DRG 948 ==
LOC: VM.MS 11:47
PROVIDERS: ADMIT Internal Medicine; ATTEND Internal Medicine
DX: R53.81 Other malaise (principal); L03.317 Cellulitis of buttock; D62 Acute posthemorrhagic anemia; I50.32 Chronic diastolic (congestive) heart failure; Z66 Do not resuscitate; S72.401D Unspecified fracture of lower end of right femur, subsequent encounter for closed fracture with routine healing; L30.4 Erythema intertrigo; H66.90 Otitis media, unspecified, unspecified ear; J32.9 Chronic sinusitis, unspecified; R42 Dizziness and giddiness; E78.00 Pure hypercholesterolemia, unspecified; M54.9 Dorsalgia, unspecified; G89.29 Other chronic pain; M19.90 Unspecified osteoarthritis, unspecified site; M48.061 Spinal stenosis, lumbar region without neurogenic claudication; E11.9 Type 2 diabetes mellitus without complications; L89.152 Pressure ulcer of sacral region, stage 2; S81.801D Unspecified open wound, right lower leg, subsequent encounter; I11.0 Hypertensive heart disease with heart failure; E66.9 Obesity, unspecified; F11.90 Opioid use, unspecified, uncomplicated; E11.40 Type 2 diabetes mellitus with diabetic neuropathy, unspecified; D64.9 Anemia, unspecified; Z79.899 Other long term (current) drug therapy; Z79.4 Long term (current) use of insulin; Z90.710 Acquired absence of both cervix and uterus; Z90.49 Acquired absence of other specified parts of digestive tract; Z68.35 Body mass index [BMI] 35.0-35.9, adult; Z86.718 Personal history of other venous thrombosis and embolism; Z96.659 Presence of unspecified artificial knee joint
CPT/HCPCS: 36415; 80048; 82947; 85025; 97110-GO; 97110-GP; 97116-GP; 97162-GP; 97164-GP; 97165-GO; 97530-GO; 97530-GP; 97535-GO; A9270-GY; J0690; J1650; J1815-GY

== ENCOUNTER 2024-11-14 23:40 | Inpatient (IN) | payer MEDICARE, BC ==
[2024-11-14] MEDS ORDERED: Sodium Chloride 0.9% 10 ML Syringe FLUSH PRN (23:46)
[2024-11-15 00:18] LABS: BASOPHILS ABSOLUTE AUTO 0.0 x10^3/uL (0.0-0.2); BASOPHILS PERCENT AUTO 0.1 % (0.2-1.2); EOSINOPHILS ABSOLUTE AUTO 0.1 x10^3/uL (0.0-0.5); EOSINOPHILS PERCENT AUTO 0.5 % (0.0-4.0); IMMATURE GRAN ABSOLUTE AUTO 0.03 x10^3/uL (0.00-0.07); IMMATURE GRAN PERCENT AUTO 0.20 % (0.00-0.43); LYMPHOCYTES ABSOLUTE AUTO 0.6 x10^3/uL (1.0-4.8); LYMPHOCYTES PERCENT AUTO 4.3 % (25.0-50.0); MONOCYTES ABSOLUTE AUTO 0.9 x10^3/uL (0.0-0.8); MONOCYTES PERCENT AUTO 6.0 % (2.0-11.0); NEUTROPHILS ABSOLUTE AUTO 13.3 x10^3/uL (1.8-7.7); NEUTROPHILS PERCENT AUTO 88.9 % (50.0-80.0); PLATELET COUNT,PLT 196 x10^3/uL (130-400); RED BLOOD CELL COUNT 4.66 x10^6/uL (4.00-5.50); WHITE BLOOD CELL COUNT,WBC 15.0 x10^3/uL (4.0-10.0)
[2024-11-15] MEDS: Lactated Ringers 1,000 ML IV ONE (00:31)
[2024-11-15 00:41] LABS: A/G RATIO 0.67; ALANINE AMINOTRANSFERASE,ALT 48 U/L (14-59); ASPARTATE AMNIOTRANSFERASE,AST 33 U/L (15-37); BILIRUBIN TOTAL 0.8 mg/dL (0.2-1.0); BLOOD UREA NITROGEN,BUN 25 mg/dL (7-18); CARBON DIOXIDE,CO2 26 mmol/L (21-32); CHLORIDE,CL 104 mmol/L (98-107); CREATINE KINASE,CK 53 U/L (26-192); CREATININE 1.1 mg/dL (0.55-1.02); GLUCOSE RANDOM 278 mg/dL (70-99); POTASSIUM,K 4.2 mmol/L (3.5-5.1); PROTEIN TOTAL,TP 7.2 g/dL (6.4-8.2); SODIUM,NA 141 mmol/L (136-145)
[2024-11-15 00:42] LABS: ESTIMATED GFR 48 mL/min (>=60)
[2024-11-15 00:57] LABS: APPEARANCE,URINE CLOUDY (CLEAR); GLUCOSE,URINE 100 mg/dL (NEGATIVE); OCCULT BLOOD,URINE MODERATE (NEGATIVE)
[2024-11-15 01:03] LABS: SQUAMOUS EPITHELIAL CELLS,UR OCCASIONAL /HPF (NOT SEEN)
[2024-11-15] MEDS: Ciprofloxacin in D5W 400 MG in Premix Bag 1 BAG IV ONE (01:45)
[2024-11-15] MEDS ORDERED: Non-Formulary Medication 1 Each (Insulin Aspart 100 UNIT/ML Insuln.Pen) SQ SCH (08:00)
[2024-11-15] MEDS: Insulin Glarg,Human.Rec.Analog 100 Unit/ML 10 ML Vial SUBCUT SCH (08:31)
[2024-11-15] MEDS ORDERED: Non-Formulary Medication 1 Each (Insulin Degludec [Tresiba] 100 UNIT/ML Vial) SQ SCH (09:00)
[2024-11-15] MEDS: Nystatin Crm 30 GM Tube TOP SCH (11:53)
[2024-11-15] MEDS: Ciprofloxacin in D5W 400 MG in Premix Bag 1 BAG IV SCH (13:37)
[2024-11-15] MEDS ORDERED: 50% Dextrose in Water 50 ML Syringe IVPUSH PRN (18:20)
[2024-11-15] MEDS: Triamcinolone Acetonide 0.1% Crm 15 GM Tube TOP SCH (20:19)
[2024-11-16 07:08] LABS: BASOPHILS ABSOLUTE AUTO 0.0 x10^3/uL (0.0-0.2); BASOPHILS PERCENT AUTO 0.3 % (0.2-1.2); EOSINOPHILS ABSOLUTE AUTO 0.2 x10^3/uL (0.0-0.5); EOSINOPHILS PERCENT AUTO 3.0 % (0.0-4.0); IMMATURE GRAN ABSOLUTE AUTO 0.04 x10^3/uL (0.00-0.07); IMMATURE GRAN PERCENT AUTO 0.70 % (0.00-0.43); LYMPHOCYTES ABSOLUTE AUTO 1.2 x10^3/uL (1.0-4.8); LYMPHOCYTES PERCENT AUTO 19.5 % (25.0-50.0); MONOCYTES ABSOLUTE AUTO 0.6 x10^3/uL (0.0-0.8); MONOCYTES PERCENT AUTO 9.9 % (2.0-11.0); NEUTROPHILS ABSOLUTE AUTO 4.0 x10^3/uL (1.8-7.7); NEUTROPHILS PERCENT AUTO 66.6 % (50.0-80.0); PLATELET COUNT,PLT 178 x10^3/uL (130-400); RED BLOOD CELL COUNT 4.19 x10^6/uL (4.00-5.50); WHITE BLOOD CELL COUNT,WBC 6.0 x10^3/uL (4.0-10.0)
[2024-11-16] MEDS: Vitamins A and D Oint 113 GM Tube TOP PRN (20:57)
[2024-11-17 07:44] LABS: BASOPHILS ABSOLUTE AUTO 0.0 x10^3/uL (0.0-0.2); BASOPHILS PERCENT AUTO 0.5 % (0.2-1.2); EOSINOPHILS ABSOLUTE AUTO 0.2 x10^3/uL (0.0-0.5); EOSINOPHILS PERCENT AUTO 3.5 % (0.0-4.0); IMMATURE GRAN ABSOLUTE AUTO 0.02 x10^3/uL (0.00-0.07); IMMATURE GRAN PERCENT AUTO 0.30 % (0.00-0.43); LYMPHOCYTES ABSOLUTE AUTO 1.2 x10^3/uL (1.0-4.8); LYMPHOCYTES PERCENT AUTO 19.6 % (25.0-50.0); MONOCYTES ABSOLUTE AUTO 0.6 x10^3/uL (0.0-0.8); MONOCYTES PERCENT AUTO 10.0 % (2.0-11.0); NEUTROPHILS ABSOLUTE AUTO 4.1 x10^3/uL (1.8-7.7); NEUTROPHILS PERCENT AUTO 66.1 % (50.0-80.0); PLATELET COUNT,PLT 218 x10^3/uL (130-400); RED BLOOD CELL COUNT 4.34 x10^6/uL (4.00-5.50); WHITE BLOOD CELL COUNT,WBC 6.3 x10^3/uL (4.0-10.0)
[2024-11-18] MEDS ORDERED: 50% Dextrose in Water 50 ML Syringe IVPUSH PRN (23:13)
[2024-11-19 12:29] LABS: BLOOD UREA NITROGEN,BUN 26.0 mg/dL (7-18); CARBON DIOXIDE,CO2 32.0 mmol/L (21-32); CHLORIDE,CL 103.0 mmol/L (98-107); CREATININE 1.3 mg/dL (0.55-1.02); EST CRCL DRUG DOSING (CG) 29.09 mL/min; GLUCOSE RANDOM 287.0 mg/dL (70-99); PHOSPHORUS 3.8 mg/dL (2.6-4.7); POTASSIUM,K 4.7 mmol/L (3.5-5.1); SODIUM,NA 141.0 mmol/L (136-145)
[2024-11-19 12:31] LABS: ESTIMATED GFR 40.0 mL/min (>=60)
[2024-11-20] MEDS: Miconazole 2% Top Powder 45 GM Container TOP SCH (21:34)
[2024-11-22 11:14] LABS: BASOPHILS ABSOLUTE AUTO 0.0 x10^3/uL (0.0-0.2); BASOPHILS PERCENT AUTO 0.3 % (0.2-1.2); EOSINOPHILS ABSOLUTE AUTO 0.2 x10^3/uL (0.0-0.5); EOSINOPHILS PERCENT AUTO 2.3 % (0.0-4.0); IMMATURE GRAN ABSOLUTE AUTO 0.04 x10^3/uL (0.00-0.07); IMMATURE GRAN PERCENT AUTO 0.40 % (0.00-0.43); LYMPHOCYTES ABSOLUTE AUTO 1.0 x10^3/uL (1.0-4.8); LYMPHOCYTES PERCENT AUTO 10.5 % (25.0-50.0); MONOCYTES ABSOLUTE AUTO 0.8 x10^3/uL (0.0-0.8); MONOCYTES PERCENT AUTO 9.1 % (2.0-11.0); NEUTROPHILS ABSOLUTE AUTO 7.0 x10^3/uL (1.8-7.7); NEUTROPHILS PERCENT AUTO 77.4 % (50.0-80.0); PLATELET COUNT,PLT 252 x10^3/uL (130-400); RED BLOOD CELL COUNT 4.47 x10^6/uL (4.00-5.50); WHITE BLOOD CELL COUNT,WBC 9.1 x10^3/uL (4.0-10.0)
[2024-11-22] MEDS: guaiFENesin/Dextromethorphan 100-10 MG/5 ML Soln 10 ML Cup PO PRN (15:33)
[2024-11-23 12:54] VITALS: BP 139/64; PULSE 75
== END 2024-11-23 13:00 | disposition home or self-care (01) | DRG 872 ==
LOC: VM.ED 23:40 → VM.MS 11-15 01:15
PROVIDERS: ADMIT Internal Medicine; ATTEND Family Medicine
DX: A41.9 Sepsis, unspecified organism (principal); N39.0 Urinary tract infection, site not specified; Z16.24 Resistance to multiple antibiotics; I50.32 Chronic diastolic (congestive) heart failure; Z86.711 Personal history of pulmonary embolism; Z79.899 Other long term (current) drug therapy; Z79.4 Long term (current) use of insulin; E78.00 Pure hypercholesterolemia, unspecified; M19.90 Unspecified osteoarthritis, unspecified site; Z90.49 Acquired absence of other specified parts of digestive tract; Z90.710 Acquired absence of both cervix and uterus; Z96.659 Presence of unspecified artificial knee joint; E11.51 Type 2 diabetes mellitus with diabetic peripheral angiopathy without gangrene; I87.2 Venous insufficiency (chronic) (peripheral); E11.65 Type 2 diabetes mellitus with hyperglycemia; I11.0 Hypertensive heart disease with heart failure; E11.40 Type 2 diabetes mellitus with diabetic neuropathy, unspecified; K59.00 Constipation, unspecified; S81.801D Unspecified open wound, right lower leg, subsequent encounter; X58.XXXD Exposure to other specified factors, subsequent encounter; B34.9 Viral infection, unspecified; Z86.718 Personal history of other venous thrombosis and embolism
CPT/HCPCS: 36415; 71045; 71046; 80053; 80069; 81001; 82550; 82947; 83605; 84484; 85025; 86140; 87040; 87086; 87426-QW; 96360; 97110-GP; 97116-GP; 97161-GP; 97165-GO; 97535-GO; 97597; 99223; 99223-GT; 99232; 99232-GT; 99233-GT; 99239; 99239-GT; 99284; 99285-25; A9270-GY; J0744; J1650; J1815-GY; J7120

== ENCOUNTER 2024-12-03 02:14 | Emergency (ER) | payer MEDICARE, BC ==
[2024-12-03] MEDS ORDERED: Sodium Chloride 0.9% 10 ML Syringe FLUSH PRN (02:32)
[2024-12-03] MEDS: Lactated Ringers 1,000 ML IV ONE (02:33)
[2024-12-03 02:43] LABS: BASOPHILS ABSOLUTE AUTO 0.0 x10^3/uL (0.0-0.2); BASOPHILS PERCENT AUTO 0.4 % (0.2-1.2); EOSINOPHILS ABSOLUTE AUTO 0.1 x10^3/uL (0.0-0.5); EOSINOPHILS PERCENT AUTO 1.2 % (0.0-4.0); IMMATURE GRAN ABSOLUTE AUTO 0.03 x10^3/uL (0.00-0.07); IMMATURE GRAN PERCENT AUTO 0.30 % (0.00-0.43); LYMPHOCYTES ABSOLUTE AUTO 2.0 x10^3/uL (1.0-4.8); LYMPHOCYTES PERCENT AUTO 18.4 % (25.0-50.0); MONOCYTES ABSOLUTE AUTO 0.9 x10^3/uL (0.0-0.8); MONOCYTES PERCENT AUTO 8.2 % (2.0-11.0); NEUTROPHILS ABSOLUTE AUTO 7.6 x10^3/uL (1.8-7.7); NEUTROPHILS PERCENT AUTO 71.5 % (50.0-80.0); PLATELET COUNT,PLT 462 x10^3/uL (130-400); RED BLOOD CELL COUNT 4.62 x10^6/uL (4.00-5.50); WHITE BLOOD CELL COUNT,WBC 10.7 x10^3/uL (4.0-10.0)
[2024-12-03 03:10] LABS: INR 1.0 (0.9-1.1); PTT,PARTIAL THROMBOPLSTIN TIME 26.7 SEC (23.5-33.2)
[2024-12-03 03:39] LABS: A/G RATIO 0.45; ALANINE AMINOTRANSFERASE,ALT 58 U/L (14-59); ASPARTATE AMNIOTRANSFERASE,AST 81 U/L (15-37); BILIRUBIN TOTAL 0.5 mg/dL (0.2-1.0); BLOOD UREA NITROGEN,BUN 41 mg/dL (7-18); CARBON DIOXIDE,CO2 23 mmol/L (21-32); CHLORIDE,CL 106 mmol/L (98-107); CREATININE 1.7 mg/dL (0.55-1.02); ESTIMATED GFR 29 mL/min (>=60); GLUCOSE RANDOM 316 mg/dL (70-99); POTASSIUM,K 4.8 mmol/L (3.5-5.1); PRO B-TYPE NATRIUR PEPT,BNPPRO 17111 pg/mL (<=450); PROTEIN TOTAL,TP 7.7 g/dL (6.4-8.2); SODIUM,NA 142 mmol/L (136-145)
[2024-12-03 03:42] LABS: CREATINE KINASE,CK 269 U/L (26-192)
[2024-12-03] MEDS: Heparin Sodium 5,000 Units/ML Vial IVPUSH ONE (03:50)
[2024-12-03] MEDS: Furosemide 40 MG/4 ML VIAL IV ONE (03:55)
[2024-12-03 04:48] LABS: CORONAVIRUS COVID-19 NAA NEGATIVE (NEGATIVE); INFLUENZA A NAA NEGATIVE (NEGATIVE); INFLUENZA B NAA NEGATIVE (NEGATIVE); RESPIRATORY SYNCYTIAL VIR NAA NEGATIVE (NEGATIVE)
[2024-12-03] MEDS: VANCOmycin 1 GM/200 ML 1 GM in Premix Bag 1 BAG IV ONE (08:49)
[2024-12-03] MEDS: Heparin Sodium/0.45% NaCl 25,000 UNITS/250 ML BAG IV SCH (08:58)
== END 2024-12-03 04:30 | disposition short-term general hospital (02) ==
LOC: VM.ED 02:14
DX: I21.9 Acute myocardial infarction, unspecified (principal); R57.0 Cardiogenic shock; I10 Essential (primary) hypertension; E78.00 Pure hypercholesterolemia, unspecified; E11.9 Type 2 diabetes mellitus without complications; Z90.710 Acquired absence of both cervix and uterus; Z79.899 Other long term (current) drug therapy; Z79.82 Long term (current) use of aspirin; Z79.4 Long term (current) use of insulin
CPT/HCPCS: 71045; 80053; 82150; 82550; 83605; 83690; 83735; 83880; 84145; 84484; 85025; 85610; 85730; 86140; 87040; 87637; 93005; 93010; 96365; 96375; 99284; 99285-25; A9270-GY; J1644; J1938; J7120

== ENCOUNTER 2025-01-15 09:51 | Emergency (ER) | payer OTHER, MEDICARE, BC ==
[2025-01-15 10:19] LABS: BASOPHILS ABSOLUTE AUTO 0.0 x10^3/uL (0.0-0.2); BASOPHILS PERCENT AUTO 0.7 % (0.2-1.2); EOSINOPHILS ABSOLUTE AUTO 0.1 x10^3/uL (0.0-0.5); EOSINOPHILS PERCENT AUTO 2.0 % (0.0-4.0); IMMATURE GRAN ABSOLUTE AUTO 0.01 x10^3/uL (0.00-0.07); IMMATURE GRAN PERCENT AUTO 0.20 % (0.00-0.43); LYMPHOCYTES ABSOLUTE AUTO 1.0 x10^3/uL (1.0-4.8); LYMPHOCYTES PERCENT AUTO 23.0 % (25.0-50.0); MONOCYTES ABSOLUTE AUTO 0.4 x10^3/uL (0.0-0.8); MONOCYTES PERCENT AUTO 8.4 % (2.0-11.0); NEUTROPHILS ABSOLUTE AUTO 2.9 x10^3/uL (1.8-7.7); NEUTROPHILS PERCENT AUTO 65.7 % (50.0-80.0); RED BLOOD CELL COUNT 3.48 x10^6/uL (4.00-5.50); WHITE BLOOD CELL COUNT,WBC 4.4 x10^3/uL (4.0-10.0)
[2025-01-15 10:31] LABS: PLATELET COUNT,PLT 254 x10^3/uL (130-400)
[2025-01-15 10:44] LABS: A/G RATIO 0.51; ALANINE AMINOTRANSFERASE,ALT 16 U/L (14-59); ASPARTATE AMNIOTRANSFERASE,AST 16 U/L (15-37); BILIRUBIN TOTAL 0.4 mg/dL (0.2-1.0); BLOOD UREA NITROGEN,BUN 22 mg/dL (7-18); CARBON DIOXIDE,CO2 33 mmol/L (21-32); CHLORIDE,CL 105 mmol/L (98-107); CREATININE 1.4 mg/dL (0.55-1.02); GLUCOSE RANDOM 143 mg/dL (70-99); POTASSIUM,K 4.7 mmol/L (3.5-5.1); PRO B-TYPE NATRIUR PEPT,BNPPRO 22390 pg/mL (<=450); PROTEIN TOTAL,TP 6.2 g/dL (6.4-8.2); SODIUM,NA 142 mmol/L (136-145)
[2025-01-15 10:47] LABS: ESTIMATED GFR 36 mL/min (>=60)
[2025-01-15] MEDS ORDERED: Furosemide 40 MG/4 ML VIAL IV ONE (12:28)
[2025-01-15] MEDS: Furosemide 40 MG/4 ML VIAL IV ONE (12:58)
== END 2025-01-15 13:17 | disposition short-term general hospital (02) ==
LOC: VM.ED 09:51
DX: I11.0 Hypertensive heart disease with heart failure (principal); I50.23 Acute on chronic systolic (congestive) heart failure; E78.00 Pure hypercholesterolemia, unspecified; E11.9 Type 2 diabetes mellitus without complications; Z79.82 Long term (current) use of aspirin; Z90.710 Acquired absence of both cervix and uterus; Z79.899 Other long term (current) drug therapy; Z79.4 Long term (current) use of insulin; Z79.84 Long term (current) use of oral hypoglycemic drugs
CPT/HCPCS: 36415; 71045; 80053; 83880; 84484; 85025; 85379; 93005; 93010; 96374; 99284; 99285-25; J1938